=== PATIENT | female | born 1945 | race Caucasian/White ===

== ENCOUNTER → 2018-06-22 21:41 | Outpatient (CLI) | payer MEDICARE, OTHER, SELFPAY ==
[2018-06-17 15:56] VITALS: BMI 24.6
[2018-06-22 22:18] LABS: Absolute Lymphocyte Count 2.12 X10^3/ul (0.83-4.51); Absolute Neutrophil Count 5.4 X10^3/uL (2.0-7.7); Basophil# 0.04 X10^3/uL; Basophil% 0.5 % (0-1); Eosinophil# 0.26 X10^3/uL; Hematocrit 45.4 % (37-47); Hemoglobin 15.9 g/dl (12.0-15.0); Lymphocyte # 2.12 X10^3/ul (4.0); Lymphocyte % 24.7 % (19-41); Mean Corpuscular Hgb 30.6 pg (27.0-32.0); Mean Corpuscular Volume 87.5 fL (81-99); Mean Platelet Vol. 9.6 fl (6.2-12.0); Monocyte# 0.74 X10^3/uL; Monocyte% 8.6 % (0-10); Neutrophil # 5.41 X10^3/uL (2.7-7.7); Platelet Count 351 K/mm3 (150-450); RBC Distribution Width CV 13.1 % (11.6-14.6); Red Blood Count 5.19 M/mm3 (4.2-5.4); White Blood Count 8.6 K/mm3 (4.4-11.0)
[2018-06-22 22:27] LABS: POSITIVE COUNT NO; POSITIVE DIFFERENTIAL NO; POSITIVE MORPHOLOGY NO
[2018-06-22 22:48] LABS: AST(SGOT) 23 U/L (15-37); Alanine Aminotransfer ALT/SGPT 24 U/L (13-56); Albumin, Serum 3.9 g/dL (3.2-5.0); Alkaline Phosphatase 51 U/L (45-117); Anion Gap 7 (5-15); BUN 20 mg/dL (7-18); BUN/Creat Ratio 22.6 RATIO (10-20); Calcium,Total 9.3 mg/dL (8.5-10.1); Chloride 96 mmol/L (98-107); Cholesterol 204 mg/dL (200); Creatinine, Serum 0.88 mg/dL (0.55-1.02); EST Glomerular Filtration Rate 67 mL/min (>60); Est Glom Filt Rate - Afr Amer 81 mL/min (>60); Globulin 3.8 g/dL (2.2-4.2); Glucose 86 mg/dL (74-106); High Density Lipoprotein 48 mg/dL; Potassium 3.6 mmol/L (3.5-5.1); Protein, Total 7.7 g/dL (6.4-8.2); Sodium Level 133 mmol/L (136-145); Thyroid Stim Hormone (TSH) 2.28 uIU/mL (0.358-3.74); Triglycerides 226 mg/dL; Very Low Density Lipoprotein 45 mg/dL (5-40)
--- OUTSIDE RECORDS SUMMARY | 2018-08-09 00:33 | XMS RPT_ITS ---
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 Jayme, Active Js Montes INSULATION SUPERVISOR-C [facility] / E78.00(ICD-10) Repository 05/18/2018 Active Unspecified open SHELTON LIAO Active [facility] wound of S Other [facility] unspecified Repository finger without damage to nail, initial encounter / S61.209A(ICD-10) 05/18/2018 Active Laceration SHELTON LIAO Active [facility] without foreign S Other [facility] body of left Repository middle finger without damage to nail, initial encounter / S61.213A(ICD-10) 05/18/2018 Active Laceration SHELTON LIAO Active [facility] without foreign S Other [facility] body of left Repository little finger without damage to nail, initial encounter / S61.217A(ICD-10) 08/11/2017 Active Encounter for MAGALY NARAYAN Active [facility] screening (INSULATION SUPERVISOR) Other [facility] mammogram for Repository malignant neoplasm of breast / Z12.31(ICD-10) PROCEDURES PROCEDURES No Procedure Records FoundRESULTS RESULTS OFFICE VISIT Observed: 06/24/2018 Status: F Source: JS 2:32 PM [facility] REPOSITORY [facility] [address] [place] [address] OFFICE VISIT Date of Service: 06/22/18 MR#: [id number] Acct: [id number] Name: FANNY MARTINEZ Rep #: [id number] : 1945 Provider: YIMI Delacruz Age/Sex: 72/F Location: [facility] Status: Signed Intake Intake Visit Reasons: BW Allergies adhesive Allergy (Severe, Verified 03/27/18 14:29) hives itches nitrofurantoin [From Macrodantin] Allergy (Intermediate, Verified 03/27/18 14:28) hives augmentin Adverse Reaction (Severe, Uncoded 03/27/18 14:28) Upset Stomach Medications alprazolam 0.5 mg tablet 0.5 mg PO BID-TID PRN tab 03/27/18 [History Confirmed 03/27/18] aspirin 81 mg chewable tablet 81 mg PO DAILY 03/27/18 [History Confirmed 03/27/18] bimatoprost 0.01 % eye drops 1 drp OPHTHALMIC QPM 03/27/18 [History Confirmed 03/27/18] calcium cit 250 mg-mag 40 mg-D3 125 unit-zinc 3.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-erkia tablet 1 tab PO DAILY 03/27/18 [History Confirmed 03/27/18] estradiol 0.025 mg/24 hr semiweekly transdermal patch 1 patch TRANSDERMAL QWEEK 03/27/18 [History Confirmed 03/27/18] multivitamin,xa-ymut-ventkqfk tablet 1 tab PO DAILY 03/27/18 [History Confirmed 03/27/18] timolol 0.5 % eye drops 1 drp OPHTHALMIC BID 03/27/18 [History Confirmed 03/27/18] ibuprofen 800 mg tablet 800 mg PO TID PRN #60 tab 05/27/18 [Rx Confirmed 05/27/18] cephalexin 250 mg capsule 250 mg PO TID #15 cap 06/17/18 [Rx Confirmed 06/17/18] atenolol 100 mg-chlorthalidone 25 mg tablet 1 tab PO DAILY #90 tab 06/23/18 [Rx] levothyroxine 50 mcg tablet 50 mcg PO DAILY #90 tab 06/23/18 [Rx] PFSH Medical History Abnormal colonoscopy (Acute) Anxiety (Acute) C. difficile diarrhea (Acute) Glaucoma (Acute) H/O endoscopy (Acute) Menopausal symptom (Acute) Osteopenia (Acute) Hypertension (Chronic) Surgical History History of appendectomy (Acute) History of bladder suspension procedure (Acute) History of cholecystectomy (Acute) History of right shoulder replacement (Acute) S/P total abdominal hysterectomy and bilateral salpingo-oophorectomy (Acute) Family History Mother Colon cancer Other Heart disease Hypertension Pancreatic cancer Social History Smoking Status: Never smoker HPI HPI (General) HPI HPI: FANNY MARTINEZ, is a 72 F who presents to the office today for Assessment AND Plan Orders Orders: Coding Level of Care Code No Charge 06/24/18 1438 <Electronically signed by Jyoti FITZPATRICKC> Date Jyoti XIE CC: CBC W/DIFF, AUTOMATED Collected: 06/22/2018 Status: F Source: JS 3:35 PM [facility] REPOSITORY TYPE CODE TESTS RESULT OUT OF RANGE REFERENCE UNITS LAB L100.1000 4.4-11.0 K/mm3 Normal WBC 8.6 LAB L100.1200 4.2-5.4 M/mm3 Normal RBC 5.19 LAB L100.1300 12.0-15.0 g/dl High HGB 15.9 LAB L100.1400 37-47 % Normal HCT 45.4 LAB L100.1500 81-99 fL Normal MCV 87.5 LAB L100.1600 27.0-32.0 pg Normal MCH 30.6 LAB L100.1700 32-36 g/gl Normal MCHC 35.0 LAB L100.1810 11.6-14.6 % Normal RDW CV 13.1 LAB L100.1820 35.1-43.9 fl Normal RDW SD 42.0 LAB L100.1900 150-450 K/mm3 Normal PLT 351 LAB L100.2000 6.2-12.0 fl Normal MPV 9.6 LAB L100.2100 47-70 % Normal NEUT% 63.0 LAB L100.2200 19-41 % Normal LY% 24.7 LAB L100.2300 0-10 % Normal MONO% 8.6 LAB L100.2400 0-5 % Normal EO% 3.0 LAB L100.2500 0-1 % Normal BASO% 0.5 LAB L100.2550 0.0-0.9 % Normal IM GRAN % 0.200 Result Comment: IG% - Immature Granulocytes (promyelocytes, myelocytes and metamyelocytes) > 1% indicates that a LEFT SHIFT is Present. LAB L100.2620 2.0-7.7 X10 3/uL Normal Absolute Neut 5.4 LAB L100.2720 0.83-4.51 X10 3/ul Normal Absolute Lymph 2.12 Performed By: #### L100.0100, L500.4050, L500.4100, L501.9520 #### [facility] [address] [place], [place], [address] COMPREHENSIVE METABOLIC Collected: 06/22/2018 Status: F Source: JS [facility] ED 3:35 PM [facility] REPOSITORY TYPE CODE TESTS RESULT OUT OF RANGE REFERENCE UNITS LAB L501.0100 74-106 mg/dL Normal GLU 86 Result Comment: Please note revised GLUCOSE reference range effective 2017. LAB L501.1000 7-18 mg/dL High BUN 20 LAB L501.1100 0.55-1.02 mg/dL Normal CREAT,SERUM 0.88 Result Comment: The validity of the calculated GFR AND GFRAA in patients over 70 years has not been determined. Clinical correlation is essential. LAB L501.1110 >60 mL/min Normal EST GFR 67 Result Comment: Non- GFR Calc LAB L501.1115 >60 mL/min Normal EST GFR - AA 81 Result Comment: GFR Calc LAB L501.1300 10-20 RATIO High BUN/CRE 22.6 LAB L501.1500 6.4-8.2 g/dL T Normal PROT 7.7 LAB L501.1800 3.2-5.0 g/dL Normal ALB 3.9 LAB L501.1950 2.2-4.2 g/dL Normal GLOB 3.8 LAB L501.2000 0.9-2.4 RATIO Normal A/G 1.0 LAB L501.2200 8.5-10.1 mg/dL CA Normal 9.3 LAB L501.4100 15-37 U/L Normal AST 23 LAB L501.4305 45-117 U/L Normal ALK P 51 LAB L501.4405 13-56 U/L Normal ALT 24 LAB L501.4600 0.20-1.00 mg/dL T Normal BILI 0.70 LAB L501.5300 136-145 mmol/L Low NA 133 LAB L501.5600 3.5-5.1 mmol/L K Normal 3.6 LAB L501.5900 98-107 mmol/L Low CL 96 LAB L501.6100 21.0-32.0 mmol/L Normal CO2 30.0 LAB L501.6200 5-15 Normal GAP 7 Performed By: #### L100.0100, L500.4050, L500.4100, L501.9520 #### [facility] [address] [place], [place], [id number] LIPID PROFILE Collected: 06/22/2018 Status: F Source: JS 3:35 PM [facility] REPOSITORY TYPE CODE TESTS RESULT OUT OF RANGE REFERENCE UNITS LAB L501.4900 200 mg/dL High CHOL 204 Result Comment: <200 mg/dL Desirable 200-240 mg/dL Borderline >240 mg/dL High Risk LAB L501.5000 mg/dL High TRIG 226 Result Comment: The drugs N-Acetylcysteine and Metamizole may falsely depress this assay. Serum Triglycerides Reference Interval Normal <150 mg/dL Borderline high 150 - 199 mg/dL High 200 - 499 mg/dL Very High > or = 500 mg/dL LAB L501.6400 mg/dL Normal HDL 48 Result Comment: The drugs N-Acetylcysteine and Metamizole may falsely depress this assay. Reference Range HDL <40 mg/dL Low HDL Cholesterol HDL >or= 60 mg/dL High HDL Cholesterol LAB L501.6500 0-130 mg/dL Normal LDL 111 LAB L501.6600 5-40 mg/dL High VLDL 45 Performed By: #### L100.0100, L500.4050, L500.4100, L501.9520 #### [facility] [address] [place], [place], [id number] THYROID STIM HORMONE Collected: 06/22/2018 Status: F Source: JS (TSH) 3:35 PM [facility] REPOSITORY TYPE CODE TESTS RESULT OUT OF RANGE REFERENCE UNITS LAB L501.9520 0.358-3.74 uIU/mL Normal TSH 2.28 Performed By: #### L100.0100, L500.4050, L500.4100, L501.9520 #### [facility] [address] [place], [address] OFFICE VISIT Observed: 06/17/2018 Status: F Source: JS 3:59 PM [facility] REPOSITORY [facility] [address] [place] [address] OFFICE VISIT Date of Service: 06/17/18 MR#: [id number] Acct: [id number] Name: FANNY MARTINEZ Rep #: [id number] : 1945 Provider: YIMI Delacruz Age/Sex: 72/F Location: [facility] Status: Signed Intake Vital Signs06/17/18 Height 5 ft 3 in 06/17/18 Weight: 139 lb Intake Visit Reasons: finger lump Accompanied by: self Is patient in pain?: Yes Allergies adhesive Allergy (Severe, Verified 03/27/18 14:29) hives itches nitrofurantoin [From Macrodantin] Allergy (Intermediate, Verified 03/27/18 14:28) hives augmentin Adverse Reaction (Severe, Uncoded 03/27/18 14:28) Upset Stomach Medications alprazolam 0.5 mg tablet 0.5 mg PO BID-TID PRN tab 03/27/18 [History Confirmed 03/27/18] aspirin 81 mg chewable tablet 81 mg PO DAILY 03/27/18 [History Confirmed 03/27/18] atenolol 100 mg-chlorthalidone 25 mg tablet 1 tab PO DAILY 03/27/18 [History Confirmed 03/27/18] bimatoprost 0.01 % eye drops 1 drp OPHTHALMIC QPM 03/27/18 [History Confirmed 03/27/18] calcium cit 250 mg-mag 40 mg-D3 125 unit-zinc 3.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-erika tablet 1 tab PO DAILY 03/27/18 [History Confirmed 03/27/18] estradiol 0.025 mg/24 hr semiweekly transdermal patch 1 patch TRANSDERMAL QWEEK 03/27/18 [History Confirmed 03/27/18] levothyroxine 50 mcg tablet 50 mcg PO DAILY 03/27/18 [History Confirmed 03/27/18] multivitamin,tx-bilx-vwvxunuu tablet 1 tab PO DAILY 03/27/18 [History Confirmed 03/27/18] timolol 0.5 % eye drops 1 drp OPHTHALMIC BID 03/27/18 [History Confirmed 03/27/18] ibuprofen 800 mg tablet 800 mg PO TID PRN #60 tab 05/27/18 [Rx Confirmed 05/27/18] cephalexin 250 mg capsule 250 mg PO TID #15 cap 06/17/18 [Rx Confirmed 06/17/18] Is last menstrual period known: No Post menopausal: Yes Patient : No PFSH Medical History Abnormal colonoscopy (Acute) Anxiety (Acute) C. difficile diarrhea (Acute) Glaucoma (Acute) H/O endoscopy (Acute) Menopausal symptom (Acute) Osteopenia (Acute) Hypertension (Chronic) Surgical History History of appendectomy (Acute) History of bladder suspension procedure (Acute) History of cholecystectomy (Acute) History of right shoulder replacement (Acute) S/P total abdominal hysterectomy and bilateral salpingo-oophorectomy (Acute) Family History Mother Colon cancer Other Heart disease Hypertension Pancreatic cancer Social History Smoking Status: Never smoker HPI HPI (General) HPI HPI: FANNY MARTINEZ, is a 72 F who presents to the office today for L middle finger developed a painful bump near where her sutures were. the scab on the pad of the finger was still there also. she notice a like blister on the lat side of the finger near the finger tip ROS Skin Skin: Positive for skin swelling, skin pain and redness Exam Resp Effort AND Inspection: Yes normal respiratory effort Auscultation: Yes clear to auscultation bilaterally Cardio Palpitation: Yes normal PMI Rate: Yes regular rate Rhythm: Yes regular rhythm Skin General: no rashes or lesions noted (blister along the nail. finger appears red) Lesions: Yes no lesions Office Procedures Incision and Drainage Provider Documentation Provider Documentation: washed the finger with Hibiclens then using a 15 blade slit the finger tip at the site of the blister got blood and no pus or other d/c covered the finger with gauze and sock tolerated well Incision and Drainage 58261 of Skin Assessment AND Plan 1. Pain in finger of left hand M79.645 Patient Instructions WASh the finger in antibacterial soap keep covered and take the antibiotics for 5 days and follow up if not better Orders Orders: 2. Blister T14.8XXA Plan Detail Other Medications New: Coding Level of Care Code Off vis,est,level 3 Diagnoses Pain in finger of left hand M79.645 Blister T14.8XXA Additional Codes Incision and Drainage - I AND D: 95288 of Skin (98986) 06/17/18 1559 <Electronically signed by Jyoti XIE> Date Jyoti XIE CC: OFFICE VISIT Observed: 05/27/2018 Status: F Source: JS 5:38 PM [facility] REPOSITORY [facility] [address] [place] [address] OFFICE VISIT Date of Service: 05/27/18 MR#: [id number] Acct: [id number] Name: FANNY MARTINEZ Rep #: [id number] : 1945 Provider: YIMI Delacruz Age/Sex: 72/F Location: [facility] Status: Signed Intake Vital Signs05/27/18 Height 5 ft 3 in 05/27/18 Weight: 138 lb Intake Visit Reasons: F/U STITCHES IN FINGERS 11-6 Allergies adhesive Allergy (Severe, Verified 03/27/18 14:29) hives itches nitrofurantoin [From Macrodantin] Allergy (Intermediate, Verified 03/27/18 14:28) hives augmentin Adverse Reaction (Severe, Uncoded 03/27/18 14:28) Upset Stomach Medications alprazolam 0.5 mg tablet 0.5 mg PO BID-TID PRN tab 03/27/18 [History Confirmed 03/27/18] aspirin 81 mg chewable tablet 81 mg PO DAILY 03/27/18 [History Confirmed 03/27/18] atenolol 100 mg-chlorthalidone 25 mg tablet 1 tab PO DAILY 03/27/18 [History Confirmed 03/27/18] bimatoprost 0.01 % eye drops 1 drp OPHTHALMIC QPM 03/27/18 [History Confirmed 03/27/18] calcium cit 250 mg-mag 40 mg-D3 125 unit-zinc 3.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-erika tablet 1 tab PO DAILY 03/27/18 [History Confirmed 03/27/18] estradiol 0.025 mg/24 hr semiweekly transdermal patch 1 patch TRANSDERMAL QWEEK 03/27/18 [History Confirmed 03/27/18] levothyroxine 50 mcg tablet 50 mcg PO DAILY 03/27/18 [History Confirmed 03/27/18] multivitamin,pe-pbkd-gopfqvcp tablet 1 tab PO DAILY 03/27/18 [History Confirmed 03/27/18] timolol 0.5 % eye drops 1 drp OPHTHALMIC BID 03/27/18 [History Confirmed 03/27/18] ibuprofen 800 mg tablet 800 mg PO TID PRN #60 tab 05/27/18 [Rx Confirmed 05/27/18] PFSH Medical History Abnormal colonoscopy (Acute) Anxiety (Acute) C. difficile diarrhea (Acute) Glaucoma (Acute) H/O endoscopy (Acute) Menopausal symptom (Acute) Osteopenia (Acute) Hypertension (Chronic) Surgical History History of appendectomy (Acute) History of bladder suspension procedure (Acute) History of cholecystectomy (Acute) History of right shoulder replacement (Acute) S/P total abdominal hysterectomy and bilateral salpingo-oophorectomy (Acute) Family History Mother Colon cancer Other Heart disease Hypertension Pancreatic cancer Social History Smoking Status: Never smoker HPI HPI (General) HPI HPI: FANNY MARTINEZ, is a 72 F who presents to the office today for suture removal of the finger. Was seen in the ED about 10 days ago for smashing her fingers in the window at the voting area in [facility]. Received [address] and 4 th finger tips no sign of infection but some dehiscence occurred ROS Skin Skin: Positive for wounds (10 sutures) Exam Const Constitutional: Yes cooperative HENMT Face: Yes laceration (10 sutures removed) Resp Effort AND Inspection: Yes normal respiratory effort Cardio Palpitation: Yes normal PMI Rate: Yes regular rate Rhythm: Yes regular rhythm Skin Trauma: Yes laceration (10 sutures removed) Office Procedures Suture/Staple Removal Suture/Staple Procedure performed by: Jyoti Delacruz Staple/Suture Removal: rinsed the fingers with h202 to remove old blood removed 10 sutures but the 4 th finger open with not well approximated skin applied calcium alginate and covered with gauze and Angela to both fingers tolerated well Assessment AND Plan Problems 1. Pain in finger of left hand M79.645 2. Laceration of finger without complication, initial encounter S66.268F Patient Instructions change dressing daily Shower as usual and cover the open area with the calcium alginate moisten the cover with moist gauze and dry gauze then tape till scabbed follow up for any more issues removed 10 sutures Orders Orders: Medications New: Coding Level of Care Code Off vis,est,level 3 Diagnoses Pain in finger of left hand M79.645 Laceration of finger without complication, initial encounter S61.219A Encounter type: initial encounter 05/27/18 1738 <Electronically signed by Jyoti XIE> Date Jyoti XIE CC: ED NOTE Observed: 05/18/2018 Status: COMPLETED Source: [place] 10:04 AM [facility] REPOSITORY HNO ID: [id number] Author: Bianca (Rn) GABE Samuel Service: Nursing Author Type: Registered Nurse Type: ED Notes Filed: 05/18/2018 10:06 AM Note Text: Discharge instructions d/w pt and spouse at bedside. Stated understanding with no further questions for this nurse. Encouraged f/u with PCP and referring doctors given. Stated understanding. Prescription(S) were given X1. Pt medicated prior to leaving ED for pain control, pt states that the lidocaine is wearing off. Bacitracin applied to suture sites, covered with a telfa then secured in place with conformed gauze. Pt tolerated well and Pt instructed on home use via teachback method. XR HAND 3V PA/LAT/OBL Observed: 05/18/2018 Status: F Source: [facility] 8:10 AM [facility] REPOSITORY * * *Final Report* * * DATE OF EXAM: May 18 2018 8:10AM MDX [id number] - XR HAND 3V PA/LAT/OBL LT / PROCEDURE REASON: Fracture, hand * * * * Physician Interpretation * * * * PROCEDURE: Left hand INDICATION: Fracture, hand .window closed on pt's hand per pt ,all fingers are in pain- TECHNIQUE: XR HAND 3V PA/LAT/OBL LT COMPARISON: None FINDINGS: No fractures or dislocations. 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 No focal soft tissue swelling. No soft tissue foreign body. 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 No acute fracture. Coroner/Medical Examiner: MELVIN Transcribe Date/Time: May 18 2018 8:16A Dictated by : YANELIS MCDANIEL MD This examination was interpreted and the report reviewed and electronically signed by: YANELIS MCDANIEL MD on May 18 2018 8:17AM EST [id number] ED NOTE Observed: 05/18/2018 Status: COMPLETED Source: [place] 7:25 AM [facility] REPOSITORY HNO ID: [id number] Author: Chris (Medic) Juliana Petersen Service: (none) Author Type: Overcoil Stepper and Assistant Pressman Type: ED Notes Filed: 05/18/2018 7:26 AM Note Text: Pt came to ER today after a window fell onto left hand/fingers, pt has multi lacs to third and fifth digits ED PROV NOTE Observed: 05/18/2018 Status: COMPLETED Source: [place] 7:22 AM [facility] REPOSITORY HNO ID: [id number] Author: Shelton Liao MD Service: (none) Author Type: Physician Type: ED Provider Notes Filed: 05/18/2018 9:26 AM Note Text: ED Provider Note Patient Name: Fanny Martinez SERVICE DATE: 05/18/18 History Patient presents with: Finger Injury: multi finger 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 She came here immediately. He she has worsening pain with movement and a lot of bleeding. She denies numbness or weakness, and her last tetanus shot was more than 5 years ago. She is able to move her fingers just fine. PAST MEDICAL HISTORY Diagnosis Date - Hypertension PAST SURGICAL HISTORY Procedure Laterality Date - APPENDECTOMY HX - CHOLECYSTECTOMY HX - HYSTERECTOMY HX - ORTHOPEDICS SURGERY HX No family history on file. Social History Social History Main Topics - Smoking status: Never Smoker - Smokeless tobacco: Not on file - Alcohol use No - Drug use: Unknown - Sexual activity: Not on file ALLERGIES Allergen Reactions - Adhesive Tape (Jesi* Rash - Amoxicillin GI Upset - Augmentin [Amoxicil* GI Upset - Macrodantin [Nitrof* Rash - Skelaxin [Metaxalon* GI Upset Review of Systems Constitutional: Negative for chills and fever. HENT: Negative for ear pain, rhinorrhea and sore throat. Respiratory: Negative for cough and shortness of breath. Cardiovascular: Negative for chest pain and leg swelling. Gastrointestinal: Negative for abdominal pain, diarrhea, nausea and vomiting. Genitourinary: Negative for dysuria, flank pain, frequency and hematuria. Musculoskeletal: Positive for arthralgias and myalgias. Negative for back pain. Skin: Positive for wound. Negative for rash. Neurological: Negative for speech difficulty, weakness, light-headedness, numbness and headaches. Psychiatric/Behavioral: Negative for hallucinations and suicidal ideas. Physical Exam There were no vitals taken for this visit. Physical Exam Constitutional: She is oriented to person, place, and time. She appears well-developed and well-nourished. No distress. HENT: Head: Normocephalic and atraumatic. Mouth/Throat: No oropharyngeal exudate. Eyes: Pupils are equal, round, and reactive to light. Neck: Normal range of motion. Neck supple. No tracheal deviation present. Cardiovascular: Normal rate and intact distal pulses. Pulmonary/Chest: Effort normal. No respiratory distress. Abdominal: Soft. She exhibits no distension. Musculoskeletal: Normal range of motion. She exhibits no edema. Intact flexion at PIP's and DIP's throughout, intact extension throughout, intact sensation throughout; L 3rd digit distal phalanx volar surface 1 cm laceration and more distal 0.5 cm avulsion, L 5th digit distal phalanx volar surface 0.8 cm laceration, superficial Neurological: She is alert and oriented to person, place, and time. No cranial nerve deficit. She exhibits normal muscle tone. Skin: Skin is warm and dry. No erythema. As above Psychiatric: She has a normal mood and affect. Her behavior is normal. Judgment and thought content normal. Nursing note and vitals reviewed. Diagnostic Testing ED Labs Ordered and Reviewed - No data to display LAC REPAIR Date/Time: 05/18/2018 9:23 AM Performed by: SHELTON LIAO Authorized by: SHELTON LIAO Consent: Consent obtained: Verbal Consent given by: Patient Risks discussed: Infection and pain [place] protocol: Procedure explained and questions answered to patient or proxy's satisfaction: yes Relevant documents present and verified: yes Test results available and properly labeled: yes Imaging studies available: yes Required blood products, implants, devices, and special equipment available: yes Patient identity confirmed: Verbally with patient, hospital-assigned identification number, arm band and provided demographic data Anesthesia (see MAR for exact dosages): Anesthesia method: Nerve block Block location: Digital block x 2 Block needle gauge: 27 G Block anesthetic: Lidocaine 1% w/o epi Block technique: Digital Block injection procedure: Anatomic landmarks identified, introduced needle, negative aspiration for blood, anatomic landmarks palpated and incremental injection Block outcome: Anesthesia achieved Laceration details: Location: Finger Finger location: L long finger (and L little finger) Wound length (cm): 3 cm total, 1 cm each wound. Repair type: Repair type: Simple Pre-procedure details: Preparation: Patient was prepped and draped in usual sterile fashion and imaging obtained to evaluate for foreign bodies Exploration: Hemostasis achieved with: Direct pressure Wound exploration: wound explored through full range of motion and entire depth of wound probed and visualized Wound extent: no nerve damage noted and no tendon damage noted Treatment: Area cleansed with: Saline Amount of cleaning: Standard Irrigation solution: Sterile water Irrigation method: Tap Skin repair: Repair method: Sutures Suture size: 5-0 Suture material: Nylon Suture technique: Simple interrupted Number of sutures: 3, 3, and 4. Approximation: Approximation: Close Vermilion border: well-aligned Post-procedure details: Dressing: Antibiotic ointment Patient tolerance of procedure: Tolerated well, no immediate complications ED Course / Clinical Impression Clinical Impressions as of May 18 923 Laceration of left middle finger without foreign body without damage to nail, initial encounter Laceration of left little finger without foreign body without damage to nail, initial encounter Fingertip avulsion, initial encounter MDM / Disposition / Plan Course: Vital signs were reviewed. Triage records were reviewed. Medical records were reviewed. Nursing notes were reviewed and incorporated. The following medications were administered: Tetanus, bacitracin ointment Radiographs were reviewed as below. Medical Decision Making: Differential diagnosis: Lacerations of the left third and fifth fingers to the distal phalanx volar surfaces, also an avulsion of the left third digit over the distal phalanx, possible open fracture, tetanus out of date, closed fracture elsewhere, no apparent tendon or nerve injury. Assessment and plan: Ms. Martinez is a pleasant 72-year-old female presenting today with left third and fifth digit injuries. Will reassess after plain films and tetanus update and likely suture her wounds. Nothing broken, sutured, will do topical abx, close f/u for removal/recheck, returning if worse. The attending who evaluated and managed this patient was Shelton Liao . Plan: The patient was discharged home with verbal and written instructions. They were instructed to return as needed for persistent or worsening symptoms or any new concerns. Consent: A procedure or transfusion was performed - Yes verbal for procedure Shelton Liao MD SIGNATURE: MD Shelton Estevez MD 05/18/18 0926 OFFICE VISIT Observed: 03/27/2018 Status: F Source: [place] 2:39 PM [facility] REPOSITORY After Hours [place] [address] [place] [address] OFFICE VISIT Date of Service: 03/27/18 MR#: [id number] Acct: [id number] Name: FANNY MARTINEZ Rep #: [id number] : 1945 Provider: YIMI Delacruz Age/Sex: 72/F Location: [facility] Status: Signed Intake Vital Signs03/27/18 Height 5 ft 3 in 03/27/18 Weight: 137 lb Intake Visit Reasons: DIZZY Accompanied by: Self Allergies adhesive Allergy (Severe, Verified 03/27/18 14:29) hives itches nitrofurantoin [From Macrodantin] Allergy (Intermediate, Verified 03/27/18 14:28) hives augmentin Adverse Reaction (Severe, Uncoded 03/27/18 14:28) Upset Stomach Medications alprazolam 0.5 mg tablet 0.5 mg PO BID-TID PRN tab 03/27/18 [History Confirmed 03/27/18] aspirin 81 mg chewable tablet 81 mg PO DAILY 03/27/18 [History Confirmed 03/27/18] atenolol 100 mg-chlorthalidone 25 mg tablet 1 tab PO DAILY 03/27/18 [History Confirmed 03/27/18] bimatoprost 0.01 % eye drops 1 drp OPHTHALMIC QPM 03/27/18 [History Confirmed 03/27/18] calcium cit 250 mg-mag 40 mg-D3 125 unit-zinc 3.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-erika tablet 1 tab PO DAILY 03/27/18 [History Confirmed 03/27/18] cefuroxime axetil 250 mg tablet 250 mg PO Q12H 7 Days #14 tab 03/27/18 [Rx Confirmed 03/27/18] estradiol 0.025 mg/24 hr semiweekly transdermal patch 1 patch TRANSDERMAL QWEEK 03/27/18 [History Confirmed 03/27/18] levothyroxine 50 mcg tablet 50 mcg PO DAILY 03/27/18 [History Confirmed 03/27/18] multivitamin,dk-khni-pxhgpodc tablet 1 tab PO DAILY 03/27/18 [History Confirmed 03/27/18] timolol 0.5 % eye drops 1 drp OPHTHALMIC BID 03/27/18 [History Confirmed 03/27/18] Is last menstrual period known: No Post menopausal: Yes Patient : No PFSH Medical History Abnormal colonoscopy (Acute) Anxiety (Acute) C. difficile diarrhea (Acute) Glaucoma (Acute) H/O endoscopy (Acute) Menopausal symptom (Acute) Osteopenia (Acute) Hypertension (Chronic) Surgical History History of appendectomy (Acute) History of bladder suspension procedure (Acute) History of cholecystectomy (Acute) History of right shoulder replacement (Acute) S/P total abdominal hysterectomy and bilateral salpingo-oophorectomy (Acute) Family History Mother Colon cancer Other Heart disease Hypertension Pancreatic cancer Social History Smoking Status: Never smoker HPI HPI (General) HPI HPI: FANNY MARTINEZ, is a 72 F who presents to the office today for dizziness. Last Thurs called and asked what she could take .Has been using the Dramamine since then and it helps but now thinks its a sinus infection Was unable to walk upright but now doing better but woke up today dizzy again ROS Const Constitutional: Positive for fatigue and other (dizzy) ENT ENT: Positive for sinus pain, sinus pressure, dizziness/vertigo and ear pain Gastro GI: Yes other (dizzy) Endo Endo: Yes fatigue Exam Const Constitutional: Yes cooperative, Yes healthy appearing Orientation: Yes alert and awake HENMT Head: Yes normocephalic Ear: Yes hearing grossly normal bilaterally TM-Right: normal TM-Left: red Pinna-Right: within normal limits Pinna-Left: within normal limits Face: Yes normal facial exam, Yes sinus tenderness Nose: Yes external nose normal Mouth: Yes oral mucosae normal Teeth and Gingiva: Yes dentition normal Throat: Yes posterior oropharynx normal Neck Neck: normal visual inspection Thyroid: thyroid normal Eyes General: Yes appearance normal, both eyes and all related structures Chest Chest palpation AND inspection: Yes normal inspection of the chest Resp Effort AND Inspection: Yes normal respiratory effort Auscultation: Yes clear to auscultation bilaterally Cardio Palpitation: Yes normal PMI Rate: Yes regular rate Rhythm: Yes regular rhythm GI Inspection: Yes normal to inspection Auscultation: Yes normal bowel sounds Musc Cervical Spine: Yes cervical ROM normal Thoracic/Lumbar Spine: Yes thoracic and lumbar spine normal to inspection Skin General: no rashes or lesions noted Lesions: Yes no lesions Extrem General: Yes normal to inspection Neuro General: Yes alert Gait: Yes normal gait Motor: muscle tone normal throughout Psych Appearance: Positive grossly normal Mood: Positive congruent mood Affect: Positive normal affect Assessment AND Plan Problems 1. Vertigo R42 2. Acute maxillary sinusitis, recurrence not specified J01.00 3. Acute serous otitis media of left ear, recurrence not specified H65.02 Patient Instructions Take the antibiotics for 7 days then if need more get the refill watch the bowels for the diarrhea and if starts stop the antibiotics immediately Try Flonase NS 2 squirts each nostril each night before sleep try Pseudafed 30 mg (short acting ) 2 2 x a day for 5-7 days Medications New: Coding Level of Care Code Off vis,est,level 3 Diagnoses Vertigo R42 Acute maxillary sinusitis, recurrence not specified J01.00 Chronicity: acute Recurrence: not specified as recurrent Acute serous otitis media of left ear, recurrence not specified H65.02 Chronicity: acute Otitis media type: serous Recurrence: not specified as recurrent 03/27/18 1439 <Electronically signed by Jyoti XIE> Date Jyoti XIE CC: CNCO Observed: 08/11/2017 Status: COMPLETED Source: [place] 12:39 PM CLINIC OTHER CAMPUS REPOSITORY HNO ID: [id number] Author: Mammography Coordinator Service: (none) Author Type: Physician Type: Letter Filed: 08/12/2017 11:31 PM Note Text: August 11, 2017 PID: [id number] Fanny Martinez [address] [place] [id number] Dear Ms. Martinez, We are pleased to inform you that the results of your recent breast imaging exam on 08/11/2017 are normal. Early detection of cancer is very important. We also understand recommendations regarding breast cancer screening are controversial. Please discuss with your primary care provider which strategy is best for you and whether a mammogram is right for you. Your imaging studies and report will be kept on file at [facility] as part of your permanent medical record and are available for your continuing care. Thank you for allowing us to help in meeting your health care needs. Sincerely, Dr. Guaman Interpreting Radiologist [facility]. (Normal over 40) [facility] Observed: 08/11/2017 Status: F Source: [place] 11:08 AM [facility] OTHER CAMPUS REPOSITORY * * *Final Report* * * DATE OF EXAM: Aug 11 2017 11:08AM RAEGAN [id number] - [facility] SCRE[facility] / PROCEDURE REASON: z12.31 screening * * * * Physician Interpretation * * * * #[id number] - [facility] SCREEN[facility] BILATERAL DIGITAL SCREENING MAMMOGRAM WITH CAD: 08/11/2017 HISTORY: Z12.31 Screening /Screening Mammogram - patient reports NO symptoms. RESULT: TECHNIQUE: The study was acquired using full field digital technology and interpreted from soft copy. Current study was also evaluated with a Computer Aided Detection (CAD). Comparison is made to exams dated: 07/17/2016 mammogram, 07/16/2016 mammogram, 07/11/2015 mammogram, and 07/10/2014 mammogram - [facility]. There are scattered fibroglandular elements in both breasts. No significant masses, calcifications, or other findings are seen in either breast. There has been no significant interval change. IMPRESSION: NEGATIVE There is no mammographic evidence of malignancy.A 1 year screening mammogram is recommended. Suzan ortiz/nahun:08/11/2017 12:39:57 Auricular Therapist: Porsha MARSH)(Christo), [facility] letter sent: Normal over 40 Mammogram BI-RADS: 1 Negative Coroner/Medical Examiner: Nahun Transcribe Date/Time: Aug 11 2017 11:03A Dictated by : SUZAN GUAMAN MD This examination was interpreted and the report reviewed and electronically signed by: SUZAN GUAMAN MD on Aug 11 2017 12:39PM EST [id number] ALLERGIES ALLERGIES DATE TYPE / CODE NAME / CODE REACTION SEVERITY SOURCE Drug nitrofurantoin/F0060 Hives [place] 8 Allergy/099451318( [address](RXNORM) [facility] SNOMED CT) Hospital Repository Drug adhesive/[id number]( hives itches [place] 8 Allergy/540101456( RXNORM) [facility] SNOMED CT) Hospital Repository Miscellaneous augmentin Upset [place] 8 Allergy/835761463( [facility] Hospital Repository DRUG NITROFURANTOIN RASH [place] 4 INGREDI/941258450( MACROCRYSTALLINE Clinic Other SNOMED CT) [place] [facility] DRUG/962064616(SNO AMOXICILLIN-POT GI UPSET [place] [address]) CLAVULANATE Clinic Other [place] [facility] DRUG AMOXICILLIN GI UPSET [place] 1 INGREDI/304054070( Clinic Other SNOMED CT) [place] [facility] DRUG METAXALONE GI UPSET [place] INGREDI/149778856( Clinic Other SNOMED CT) [place] [facility] Chemical/203810574 ADHESIVE TAPE RASH [place] 0 (SNOMED CT) (ROSINS) Clinic Other [place] [facility] ENCOUNTERS ENCOUNTERS ADMIT/DISCHARGE ACCOUNT ADMITTING ENCOUNTER LOCATION SOURCE NUMBER CLASS 06/22/2018 [id number] Ambulatory [place] [facility] [place] ing:LABSPEC Repository 05/18/2018/05/18/20 [id number] Emergency [address] Other [place] Repository 08/11/2017 [id number] Ambulatory [facility] Other [place] Repository PAYERS PAYERS ENCOUNTER GUARANTOR PAYER SUBSCRIBER SOURCE 06/22/2018 FANNY A Primary FANNY [place] J[place] [address] Insurance:MEDICARE [place]ENHAMDOB: [place] PART A [facility] [id number] Hospital [id number]: (330) Number: Repository [phone] () [id number] Date:2018-06-22 06/22/2018 Secondary FANNY A Js Insurance:Carrie GOMESB: [facility] Number: [id number] Hospital [id number] Repository Date:6022-28-20[address] [address]NO: 06/22/2018 Tertiary NOT GIVENUNK [place] Insurance:SELF PAY [facility] Effective Repository Date:2018-06-22
[2018-08-17 01:35] LABS: Vitamin D,25 Hydroxy 27.5 ng/mL (29.95-100.01)
== END ==
PROVIDERS: Referring Provider Nurse Practitioner; Visit Provider Nurse Practitioner
DX: E78.00 Pure hypercholesterolemia, unspecified (principal)
CPT/HCPCS: 80053; 80061; 82306; 84443; 85025

== ENCOUNTER → 2018-08-16 15:55 | Outpatient (CLI) | payer MEDICARE, SELFPAY ==
[2018-08-16 15:41] VITALS: BMI 26.4
== END ==
PROVIDERS: Referring Provider Nurse Practitioner; Visit Provider Nurse Practitioner
DX: M81.0 Age-related osteoporosis without current pathological fracture (principal)

== ENCOUNTER → 2018-11-22 22:40 | Outpatient (CLI) | payer MEDICARE, SELFPAY ==
[2018-08-16 15:41] VITALS: BMI 26.4
== END ==
PROVIDERS: Referring Provider Nurse Practitioner; Visit Provider Nurse Practitioner
DX: E55.9 Vitamin D deficiency, unspecified (principal)
CPT/HCPCS: 82306

== ENCOUNTER → 2018-12-09 23:43 | Outpatient (CLI) | payer MEDICARE, SELFPAY ==
[2018-12-09 15:31] VITALS: BMI 24.0
[2018-12-10 00:07] LABS: Absolute Lymphocyte Count 2.16 X10^3/ul (0.83-4.51); Absolute Neutrophil Count 6.4 X10^3/uL (2.0-7.7); Basophil# 0.04 X10^3/uL; Basophil% 0.4 % (0-1); Eosinophil# 0.36 X10^3/uL; Eosinophils% 3.7 % (0-5); Hemoglobin 15.6 g/dl (12.0-15.0); Lymphocyte # 2.16 X10^3/ul (4.0); Lymphocyte % 22.2 % (19-41); Mean Corp Hgb Conc 34.7 g/gl (32-36); Mean Corpuscular Hgb 29.4 pg (27.0-32.0); Mean Corpuscular Volume 84.9 fL (81-99); Mean Platelet Vol. 9.4 fl (6.2-12.0); Monocyte% 7.2 % (0-10); Neutrophil # 6.43 X10^3/uL (2.7-7.7); Neutrophil % 66.3 % (47-70); POSITIVE COUNT NO; POSITIVE DIFFERENTIAL NO; POSITIVE MORPHOLOGY NO; Platelet Count 359 K/mm3 (150-450); RBC Distribution Width CV 12.8 % (11.6-14.6); RBC Distribution Width SD 39.8 fl (35.1-43.9); White Blood Count 9.7 K/mm3 (4.4-11.0)
[2018-12-10 00:26] LABS: ALB/GLOB Ratio 1.1 RATIO (0.9-2.4); AST(SGOT) 22 U/L (15-37); Alanine Aminotransfer ALT/SGPT 22 U/L (13-56); Albumin, Serum 3.8 g/dL (3.2-5.0); Alkaline Phosphatase 53 U/L (45-117); Anion Gap 7 (5-15); BUN 23 mg/dL (7-18); BUN/Creat Ratio 28.4 RATIO (10-20); Calcium,Total 9.1 mg/dL (8.5-10.1); Chloride 98 mmol/L (98-107); Creatinine, Serum 0.81 mg/dL (0.55-1.02); EST Glomerular Filtration Rate 74 mL/min (>60); Est Glom Filt Rate - Afr Amer 89 mL/min (>60); Globulin 3.6 g/dL (2.2-4.2); Glucose 90 mg/dL (74-106); Magnesium 2.2 mg/dL (1.6-2.6); Potassium 3.9 mmol/L (3.5-5.1); Protein, Total 7.4 g/dL (6.4-8.2); Sodium Level 132 mmol/L (136-145)
== END ==
PROVIDERS: Visit Provider Nurse Practitioner
DX: I10 Essential (primary) hypertension (principal); R42 Dizziness and giddiness
CPT/HCPCS: 80053; 83735; 85025

== ENCOUNTER → 2018-12-30 | Outpatient (CLI) | payer MEDICARE, SELFPAY ==
[2018-12-30 15:27] VITALS: BMI 26.3
[2018-12-30 21:53] LABS: Anion Gap 4 (5-15); BUN 19 mg/dL (7-18); Calcium,Total 9.6 mg/dL (8.5-10.1); Chloride 103 mmol/L (98-107); EST Glomerular Filtration Rate 65 mL/min (>60); Est Glom Filt Rate - Afr Amer 79 mL/min (>60); Glucose 88 mg/dL (74-106); Sodium Level 135 mmol/L (136-145); Thyroid Stim Hormone (TSH) 2.57 uIU/mL (0.358-3.74)
== END | disposition home or self-care (01) ==
PROVIDERS: Referring Provider Nurse Practitioner; Visit Provider Nurse Practitioner
DX: I10 Essential (primary) hypertension (principal); E03.9 Hypothyroidism, unspecified
CPT/HCPCS: 80048; 84443

== ENCOUNTER → 2019-07-15 21:08 | Outpatient (CLI) | payer MEDICARE, OTHER, SELFPAY ==
[2019-07-15 17:42] VITALS: BMI 25.6
[2019-07-15 21:37] LABS: Absolute Lymphocyte Count 2.22 X10^3/uL (0.83-4.51); Absolute Neutrophil Count 6.2 X10^3/uL (2.0-7.7); Basophil# 0.05 X10^3/uL; Basophil% 0.5 % (0-1); Eosinophil# 0.17 X10^3/uL; Eosinophils% 1.8 % (0-5); Hemoglobin 15.3 g/dL (12.0-15.0); Lymphocyte # 2.22 X10^3/ul (4.0); Lymphocyte % 23.8 % (19-41); Mean Corpuscular Hgb 30.1 pg (27.0-32.0); Mean Corpuscular Volume 88.4 fL (81-99); Mean Platelet Vol. 9.1 fl (6.2-12.0); Monocyte# 0.68 X10^3/uL; Monocyte% 7.3 % (0-10); NRBC Flagged by Analyzer 0 % (0-5); Neutrophil # 6.17 X10^3/uL (2.7-7.7); Neutrophil % 66.3 % (47-70); Platelet Count 367 K/mm3 (150-450); RBC Distribution Width CV 12.8 % (11.6-14.6); RBC Distribution Width SD 41.6 fl (35.1-43.9); Red Blood Count 5.09 M/mm3 (4.2-5.4); White Blood Count 9.3 K/mm3 (4.4-11.0)
[2019-07-15 21:58] LABS: ALB/GLOB Ratio 1.1 RATIO (0.9-2.4); AST(SGOT) 22 U/L (15-37); Alanine Aminotransfer ALT/SGPT 27 U/L (13-56); Albumin, Serum 3.9 g/dL (3.2-5.0); Alkaline Phosphatase 46 U/L (45-117); Anion Gap 4 (5-15); BUN 22 mg/dL (7-18); BUN/Creat Ratio 22.3 RATIO (10-20); Calcium,Total 9.2 mg/dL (8.5-10.1); Chloride 100 mmol/L (98-107); Cholesterol 232 mg/dL (200); Creatinine, Serum 0.98 mg/dL (0.55-1.02); EST Glomerular Filtration Rate 59 mL/min (>60); Est Glom Filt Rate - Afr Amer 71 mL/min (>60); Globulin 3.7 g/dL (2.2-4.2); Glucose 87 mg/dL (74-106); High Density Lipoprotein 57 mg/dL; Potassium 3.9 mmol/L (3.5-5.1); Protein, Total 7.6 g/dL (6.4-8.2); Sodium Level 133 mmol/L (136-145); Thyroid Stim Hormone (TSH) 3.54 uIU/mL (0.358-3.74); Triglycerides 189 mg/dL; Very Low Density Lipoprotein 38 mg/dL (5-40)
== END ==
PROVIDERS: Referring Provider Nurse Practitioner; Visit Provider Nurse Practitioner
DX: I10 Essential (primary) hypertension (principal); E03.9 Hypothyroidism, unspecified
CPT/HCPCS: 80053; 80061; 84443; 85025

== ENCOUNTER → 2019-09-12 | Outpatient (CLI) | payer MEDICARE, OTHER, SELFPAY ==
[2019-09-12 15:01] VITALS: BMI 25.6
[2019-09-12 21:29] LABS: Thyroid Stim Hormone (TSH) 0.13 uIU/mL (0.358-3.74)
== END | disposition home or self-care (01) ==
PROVIDERS: Referring Provider Nurse Practitioner; Visit Provider Nurse Practitioner
DX: E03.9 Hypothyroidism, unspecified (principal)
CPT/HCPCS: 84443

== ENCOUNTER → 2020-07-24 | Outpatient (CLI) | payer MEDICARE, OTHER, SELFPAY ==
[2020-07-24 16:28] VITALS: BMI 25.2
[2020-07-24 22:09] LABS: Absolute Lymphocyte Count 2.26 X10^3/uL (0.83-4.51); Absolute Neutrophil Count 6.7 X10^3/uL (2.0-7.7); Basophil# 0.07 X10^3/uL; Basophil% 0.7 % (0-1); Eosinophil# 0.15 X10^3/uL; Eosinophils% 1.5 % (0-5); Hematocrit 47.7 % (37-47); Lymphocyte # 2.26 X10^3/ul (4.0); Mean Corp Hgb Conc 33.5 g/dL (32-36); Mean Corpuscular Hgb 29.9 pg (27.0-32.0); Mean Corpuscular Volume 89.2 fL (81-99); Mean Platelet Vol. 8.9 fl (6.2-12.0); Monocyte# 0.66 X10^3/uL; Monocyte% 6.7 % (0-10); NRBC Flagged by Analyzer 0 % (0-5); Neutrophil # 6.66 X10^3/uL (2.7-7.7); Neutrophil % 67.8 % (47-70); Platelet Count 360 K/mm3 (150-450); RBC Distribution Width CV 13.1 % (11.6-14.6); RBC Distribution Width SD 42.8 fl (35.1-43.9); Red Blood Count 5.35 M/mm3 (4.2-5.4); White Blood Count 9.8 K/mm3 (4.4-11.0)
[2020-07-24 22:28] LABS: ALB/GLOB Ratio 1.1 RATIO (0.9-2.4); AST(SGOT) 22 U/L (15-37); Alanine Aminotransfer ALT/SGPT 24 U/L (13-56); Alkaline Phosphatase 50 U/L (45-117); Anion Gap 8 (5-15); BUN 15 mg/dL (7-18); BUN/Creat Ratio 19.4 RATIO (10-20); Chloride 97 mmol/L (98-107); Creatinine, Serum 0.77 mg/dL (0.55-1.02); EST Glomerular Filtration Rate 78 mL/min (>60); Est Glom Filt Rate - Afr Amer 94 mL/min (>60); Globulin 3.6 g/dL (2.2-4.2); Glucose 95 mg/dL (74-106); Potassium 3.8 mmol/L (3.5-5.1); Protein, Total 7.6 g/dL (6.4-8.2); Sodium Level 131 mmol/L (136-145)
== END | disposition home or self-care (01) ==
PROVIDERS: Referring Provider Nurse Practitioner; Visit Provider Nurse Practitioner
DX: I10 Essential (primary) hypertension (principal); E03.9 Hypothyroidism, unspecified
CPT/HCPCS: 80053; 84443; 85025

== ENCOUNTER → 2021-07-01 | Outpatient (CLI) | payer MEDICARE, OTHER, SELFPAY ==
[2021-07-01 22:23] LABS: Absolute Lymphocyte Count 1.81 X10^3/uL (0.83-4.51); Absolute Neutrophil Count 8.2 X10^3/uL (2.0-7.7); Basophil# 0.07 X10^3/uL; Basophil% 0.6 % (0-1); Eosinophil# 0.15 X10^3/uL; Eosinophils% 1.4 % (0-5); Hematocrit 45.1 % (37-47); Hemoglobin 15.7 g/dL (12.0-15.0); Lymphocyte # 1.81 X10^3/ul (0.83-4.51); Lymphocyte % 16.6 % (19-41); Mean Corp Hgb Conc 34.8 g/dL (32-36); Mean Corpuscular Hgb 30.6 pg (27.0-32.0); Mean Corpuscular Volume 87.9 fL (81-99); Mean Platelet Vol. 9.1 fl (6.2-12.0); Monocyte# 0.66 X10^3/uL; NRBC Flagged by Analyzer 0 % (0-5); Neutrophil # 8.17 X10^3/uL (2.7-7.7); Neutrophil % 74.9 % (47-70); Platelet Count 353 K/mm3 (150-450); RBC Distribution Width CV 12.8 % (11.6-14.6); RBC Distribution Width SD 41.8 fl (35.1-43.9); Red Blood Count 5.13 M/mm3 (4.2-5.4); White Blood Count 10.9 K/mm3 (4.4-11.0)
[2021-07-01 22:49] LABS: ALB/GLOB Ratio 0.9 RATIO (0.9-2.4); AST(SGOT) 22 U/L (15-37); Alanine Aminotransfer ALT/SGPT 28 U/L (13-56); Albumin, Serum 3.6 g/dL (3.2-5.0); Alkaline Phosphatase 51 U/L (45-117); Anion Gap 6 (5-15); BUN 24 mg/dL (7-18); BUN/Creat Ratio 22.6 RATIO (10-20); Calcium,Total 10.2 mg/dL (8.5-10.1); Chloride 98 mmol/L (98-107); Cholesterol 198 mg/dL (200); Creatinine, Serum 1.06 mg/dL (0.55-1.02); EST Glomerular Filtration Rate 54 mL/min (>60); Est Glom Filt Rate - Afr Amer 65 mL/min (>60); Globulin 3.9 g/dL (2.2-4.2); Glucose 124 mg/dL (74-106); High Density Lipoprotein 53 mg/dL; Potassium 3.8 mmol/L (3.5-5.1); Protein, Total 7.5 g/dL (6.4-8.2); Sodium Level 133 mmol/L (136-145); Thyroid Stim Hormone (TSH) 0.49 uIU/mL (0.358-3.74); Triglycerides 238 mg/dL; Very Low Density Lipoprotein 48 mg/dL (5-40)
== END | disposition home or self-care (01) ==
PROVIDERS: Referring Provider Nurse Practitioner; Visit Provider Nurse Practitioner
DX: I10 Essential (primary) hypertension (principal)
CPT/HCPCS: 80053; 80061; 84443; 85025

== ENCOUNTER → 2022-01-30 | Outpatient (CLI) | payer MEDICARE, OTHER, SELFPAY ==
[2022-01-30 23:47] LABS: ALB/GLOB Ratio 0.9 RATIO (0.9-2.4); AST(SGOT) 27 U/L (15-37); Alanine Aminotransfer ALT/SGPT 35 U/L (13-56); Albumin, Serum 3.6 g/dL (3.2-5.0); Alkaline Phosphatase 55 U/L (45-117); Anion Gap 7 (5-15); BUN 16 mg/dL (7-18); BUN/Creat Ratio 19.2 RATIO (10-20); Calcium,Total 9.6 mg/dL (8.5-10.1); Chloride 97 mmol/L (98-107); Creatinine, Serum 0.83 mg/dL (0.55-1.02); EST Glomerular Filtration Rate 71 mL/min (>60); Est Glom Filt Rate - Afr Amer 86 mL/min (>60); Globulin 3.8 g/dL (2.2-4.2); Glucose 96 mg/dL (74-106); Potassium 4.2 mmol/L (3.5-5.1); Protein, Total 7.4 g/dL (6.4-8.2); Sodium Level 133 mmol/L (136-145); Thyroid Stim Hormone (TSH) 0.41 uIU/mL (0.358-3.74)
[2022-01-31 10:36] LABS: PTHIN 37.6 pg/mL (18.4-80.1)
== END | disposition home or self-care (01) ==
PROVIDERS: PCP Nurse Practitioner; Referring Provider Nurse Practitioner; Visit Provider Nurse Practitioner
DX: E83.52 Hypercalcemia (principal); I10 Essential (primary) hypertension
CPT/HCPCS: 80053; 83970; 84443

== ENCOUNTER → 2022-07-22 | Outpatient (CLI) | payer MEDICARE, OTHER, SELFPAY ==
[2022-07-22 22:18] LABS: Absolute Lymphocyte Count 1.92 X10^3/uL (0.83-4.51); Absolute Neutrophil Count 5.3 X10^3/uL (2.0-7.7); Basophil# 0.07 X10^3/uL; Basophil% 0.8 % (0-1); Eosinophil# 0.27 X10^3/uL; Eosinophils% 3.2 % (0-5); Hematocrit 43.8 % (37-47); Hemoglobin 15.4 g/dL (12.0-15.0); Lymphocyte # 1.92 X10^3/ul (0.83-4.51); Mean Corp Hgb Conc 35.2 g/dL (32-36); Mean Corpuscular Hgb 30.5 pg (27.0-32.0); Mean Corpuscular Volume 86.7 fL (81-99); Mean Platelet Vol. 9.4 fl (6.2-12.0); Monocyte# 0.71 X10^3/uL; Monocyte% 8.5 % (0-10); NRBC Flagged by Analyzer 0 % (0-5); Neutrophil # 5.33 X10^3/uL (2.7-7.7); Neutrophil % 64.1 % (47-70); Platelet Count 320 K/mm3 (150-450); RBC Distribution Width SD 40.7 fl (35.1-43.9); Red Blood Count 5.05 M/mm3 (4.2-5.4); White Blood Count 8.3 K/mm3 (4.4-11.0)
[2022-07-22 22:44] LABS: AST(SGOT) 24 U/L (15-37); Alanine Aminotransfer ALT/SGPT 32 U/L (13-56); Albumin, Serum 3.7 g/dL (3.2-5.0); Alkaline Phosphatase 58 U/L (45-117); Anion Gap 9 (5-15); BUN 15 mg/dL (7-18); BUN/Creat Ratio 19.7 RATIO (10-20); Calcium,Total 9.3 mg/dL (8.5-10.1); Chloride 97 mmol/L (98-107); Cholesterol 235 mg/dL (200); Creatinine, Serum 0.76 mg/dL (0.55-1.02); EST Glomerular Filtration Rate 78 mL/min (>60); Est Glom Filt Rate - Afr Amer 95 mL/min (>60); Globulin 3.6 g/dL (2.2-4.2); Glucose 102 mg/dL (74-106); High Density Lipoprotein 45 mg/dL; Potassium 3.6 mmol/L (3.5-5.1); Protein, Total 7.3 g/dL (6.4-8.2); Sodium Level 133 mmol/L (136-145); Thyroid Stim Hormone (TSH) 0.08 uIU/mL (0.358-3.74); Triglycerides 287 mg/dL; Very Low Density Lipoprotein 57 mg/dL (5-40)
== END | disposition home or self-care (01) ==
PROVIDERS: PCP Nurse Practitioner; Visit Provider Nurse Practitioner
DX: Z00.00 Encounter for general adult medical examination without abnormal findings (principal)
CPT/HCPCS: 80053; 80061; 84443; 85025

== ENCOUNTER → 2023-03-02 | Outpatient (CLI) | payer MEDICARE, OTHER, SELFPAY | END | disposition home or self-care (01) | PROVIDERS: PCP Nurse Practitioner; Visit Provider Nurse Practitioner | DX: T81.89XA Other complications of procedures, not elsewhere classified, initial encounter (principal); H66.92 Otitis media, unspecified, left ear; X58.XXXA Exposure to other specified factors, initial encounter | CPT/HCPCS: 87070; 87205 ==

== ENCOUNTER → 2023-07-20 | Outpatient (CLI) | payer MEDICARE, OTHER, SELFPAY ==
--- OUTSIDE RECORDS SUMMARY | 2023-07-20 21:56 | XMS RPT_ITS | CCD ---
Author Name Unknown Address [address] [facility] [address] [place] [id number] Organization [facility] Care Team Providers Care Surveyor Helper Rod Name Role Phone Jayme NUNN.Tony SERRANO Primary Care Provide r HARIS STRONG Referring Unavailable GRISSOM, TONY Erinn Primary Care Unavailable HARIS STRONG Referring Unavailable GRISSOM, TONY Erinn Primary Care Unavailable GRISSOM, TONY L Referring Unavailable GRISSOM, TONY L Primary Care Unavailable GRISSOM, TONY L Referring Unavailable GRISSOM, TONY L Primary Care Unavailable GRISSOM, TONY L Primary Care Unavailable Grissom, Tony Primary Care Provider [phone] VERITO HITCHCOCK Referring Unavailable GRISSOM, TONY Primary Care Unavailable VERITO HITCHCOCK Referring Unavailable GRISSOM, TONY Primary Care Unavailable VERITO HITCHCOCK Attending Unavailable GRISSOM, TONY Primary Care Unavailable Allergies Allergy Classification Reported Allergen(s) Allergy Type Date of Onset Reaction(s) Facility (7 sources) Adhesive Tape; Translations: [ADHESIVE TAPE (ROSINS)] Allergy to substance 0 Rash [facility] (12 sources) Amoxicillin; Translations: [AMOXICILLIN] Drug Allergy 1 GI Upset, Nausea Only [facility] (12 sources) Amoxicillin / Clavulanate; Translations: [AMOXICILLIN-POT CLAVULANATE] Drug Allergy 1 GI Upset, Nausea Only [facility] (7 sources) metaxalone; Translations: [METAXALONE] Drug Allergy 1 GI Upset [facility] (7 sources) Nitrofurantoin; Translations: [NITROFURANTOIN MACROCRYSTALLINE] Drug Allergy 4 Rash [facility] (5 sources) metaxalone Drug Allergy 1 Nausea Only [facility] (5 sources) Nitrofurantoin Drug Allergy 4 [place] (5 sources) Wound Dressing Adhesive Drug Allergy 0 [facility] Tune Medications Current Medications Medication Drug Class(es) Dates Sig (Normalized) Sig (Original) [id number] 200 actuat albuterol 0.09 mg/actuat metered dose inhaler (5 sources) beta2-Adrenergic Agonist Start: 04-08-2023 End: 04-07-2024 take 2 puff(s) by inhalation every six hours as needed for wheezing albuterol 108 (90 Base) MCG/ACT inhaler Inhale 2 puffs every 6 hours as needed for wheezing. 18 g 0 04/08/2023 04/07/2024 Active Nirmatrelvir&Riton avir 300/100 (Paxlovid, 300/100,) 20 x 150 MG & 10 x 100MG tablet therapy pack (5 sources) Start: 04-08-2023 End: 04-13-2023 take 3 tablets by mouth every twelve hours Nirmatrelvir&Carlton navir 300/100 (Paxlovid, 300/100,) 20 x 150 MG & 10 x 100MG tablet therapy pack Take 3 tablets by mouth in the morning and 3 tablets in the evening. Do all this for 5 days. 30 tablet 0 04/08/2023 04/13/2023 Active Completed/Discontinued Medications Medication Drug Class(es) Dates Sig (Normalized) Sig (Original) atenolol 100 mg / chlorthalidone 25 mg oral tablet (5 sources) Thiazide-like Diuretic, beta-Adrenergic Chiqui Atenolol-Chlorthali done 100-25 mg per tablet 1 tab(s) 0 Active Problems Active Problems Problem Classification Problem Date Documented Da te Episodic/Chronic Fluid and electrolyte disorders (4 sources) Hyponatremia; Translations: [Hypo-osmolality and hyponatremia] Onset: 04-08-2023 04-08-2023 Episodic Osteoporosis (1 source) Age-related osteoporosis without current pathological fracture; Translations: [Age-related osteoporosis without current pathological fracture] Onset: 09-18-2022 Chronic Other connective tissue disease (1 source) Other enthesopathies, not elsewhere classified; Translations: [Other enthesopathies, not elsewhere classified] Onset: 03-03-2023 Episodic Viral infection (2 sources) Disease caused by 2019-nCoV; Translations: [COVID-19] 04-08-2023 Episodic Viral infection (2 sources) COVID-19; Translations: [COVID-19] Onset: 04-08-2023 Past or Other Problems Problem Classification Problem Date Documented Da te Episodic/Chronic Abdominal pain (1 source) Generalized abdominal pain; Translations: [Generalized abdominal pain] Onset: 12-19-2021 Episodic Other gastrointestinal disorders (1 source) Diarrhea, unspecified; Translations: [Diarrhea, unspecified] Onset: 12-19-2021 Episodic Other screening for suspected conditions (not mental disorders or infectious disease) (1 source) Encounter for screening mammogram for malignant neoplasm of breast; Translations: [Encounter for screening mammogram for malignant neoplasm of breast] Onset: 09-18-2022 Episodic Results Test Name Value Interpretation Reference Range Facil ity Vital Signs Date Time Vital Sign Value Performing Clinician Faci lity 04-08-2023 07:29-0400 Diastolic blood pressure 61 mm[Hg] Verito Hitchcock MD Work Phone: [facility] 04-08-2023 07:29-0400 Heart rate 69 /min Verito Hitchcock MD Work Phone: [facility] 04-08-2023 07:29-0400 Respiratory rate 16 /min Verito Hitchcock MD Work Phone: [facility] 04-08-2023 07:29-0400 SaO2% (BldA) [Mass fraction] 95 % Verito Hitchcock MD Work Phone: [facility] 04-08-2023 07:29-0400 Systolic blood pressure 129 mm[Hg] Verito Walsh Work Phone: [facility] 04-08-2023 06:11-0400 Body height 157.5 cm Verito Hitchcock MD Work Phone: [facility] 04-08-2023 06:11-0400 Body mass index (BMI) [Ratio] 24.69 kg/m2 Verito Hitchcock MD Work Phone: [facility] 04-08-2023 06:11-0400 Body temperature 98.1 [degF] Verito Hitchcock MD Work Phone: [employer] 04-08-2023 06:11-0400 Body weight 61.24 kg Verito Hitchcock MD Work Phone: [facility] Encounters Encounter Date Encounter Type Care Provider Facility Start: 04-08-2023 End: 04-09-2023 Emergency department patient visit VERITO CORETTA [facility] Start: 04-08-2023 End: 04-08-2023 Subsequent hospital visit by physician Ivis Diaz [facility] Stress Procedures Date Procedure Procedure Detail Performing Clinician Start: 04-08-2023 Ecg routine ecg w/le ast 12 lds trcg only w/o i&r Verito Hitchcock MD Work Phone: Start: 04-08-2023 Radiologic exam ches t single view Verito Hitchcock MD Work Phone: Start: 04-08-2023 SARS-COV-2, FLU A/B, AND RSV COMBO Verito Hitchcock MD Work Phone: Start: 04-08-2023 Comprehensive metabo lic panel Verito Hitchcock MD Work Phone: Start: 09-18-2022 Dxa bone density mayi dy 1/> sites axial skel Tony Grissom THERMIT WELDING MACHINE OPERATOR.CLAIM CLERK Work Phone: Start: 09-18-2022 Screening mammograph y bi 2-view breast inc cad Tony Grissom THERMIT WELDING MACHINE OPERATOR.CLAIM CLERK Work Phone: Start: 12-19-2021 Ct abdomen & pelvis w/contrast material [facility] Provider Plan of Treatment Date Care Activity Detail Author Start: 05-18-2028 DTaP/Tdap/Td Vaccines (2 - Td or Tdap) DTaP/Tdap/Td Vaccines (2 - Td or Tdap) [facility] Start: 05-18-2028 Urine microalbumin profile [facility] Start: 12-12-2024 DIABETES SCREEN DIABETES SCREEN [facility] Start: 12-12-2024 Diabetes Screening Diabetes Screening [facility] Start: 03-13-2023 Covid-19 Vaccine ( season) Covid-19 Vaccine ( season) [facility] Start: 03-13-2023 Influenza vaccination [facility] Start: 08-01-2022 COVID-19 VACCINE (6 - Moderna series) COVID-19 VACCINE (6 - Moderna series) [facility] Start: 07-13-2022 ADVANCE DIRECTIVE DISCUSSION ADVANCE DIRECTIVE DISCUSSION [facility] Start: 07-13-2022 DEPRESSION ASSESSMENT DEPRESSION ASSESSMENT [facility] Start: 01-20-2017 LIPID SCREEN LIPID SCREEN [facility] Start: 11-19-2011 Pneumococcal Vaccine: 65+ (1 - PCV) Pneumococcal Vaccine: 65+ (1 - PCV) [facility] Start: 11-19-2011 Pneumococcal Vaccine: 65+ Years (1 - PCV) Pneumococcal Vaccine: 65+ Years (1 - PCV) [facility] Start: 11-19-2011 PNEUMOCOCCAL: 65+ (1 - PCV) PNEUMOCOCCAL: 65+ (1 - PCV) [facility] Start: 2006 RSV Vaccine (1 - 1-dose 60+ series) RSV Vaccine (1 - 1-dose 60+ series) [facility] Start: 11-19-1991 COLOGUARD (FIT-DNA) COLOGUARD (FIT-DNA) [facility] Start: 11-19-1991 Colonoscopy COLONOSCOPY [facility] Start: 11-19-1991 COLORECTAL CANCER SCREENING COLORECTAL CANCER SCREENING [facility] Start: 11-19-[address] COLONOGRAPHY [facility] Start: 11-19-1991 FECAL OCCULT BLOOD FECAL OCCULT BLOOD [facility] Start: 11-19-1991 SIGMOIDOSCOPY SIGMOIDOSCOPY [facility] Start: 1964 HEPATITIS C SCREENING HEPATITIS C SCREENING [facility] Start: 1964 Hepatitis C screening Hepatitis C Screening [facility] Start: 1958 Depression Screening Depression Screening [facility] Start: 1945 Medicare Annual Wellness (AWV) Medicare Annual Wellness (AWV) [facility] Start: 1945 Screening for osteoporosis Bone Density Scan [facility] ECG 12 lead ECG 12 lead CV E CG STAT 04/08/2023 1:51 PM EDT [facility] Work Phone: Immunizations Immunization Date Immunization Notes Care Provider Fa cili 04-23-2022 influenza virus vacc ine, unspecified formulation Verito Hitchcock MD Work Phone: [facility] 03-07-2020 zoster vaccine recombinant [facility] 09-07-2019 zoster vaccine recombinant [facility] 03-25-2019 influenza, high dose seasonal, preservative-free [facility] 05-18-2018 tetanus toxoid, redu iris diphtheria toxoid, and acellular pertussis vaccine, adsorbed Bone [facility] 08-09-2009 novel influenza-H1N1 -09, preservative-free, injectable Bone [facility] Payers Date Payer Category Payer Unknown AARP AARP [id number] 2022-Present [address] [place] [address] Supplement [id number] 2021 Private Health Insurance [facility] AARP SUPPLEMENT [id number] 2021-Present [phone] [address] [place] [address] Indemnity [id number] 2021 Unknown [id number] 2011 Medicare 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 Start: 12-08-2021 End: 12-18-2021 Exposure to SARS-CoV-2 (event) Not sure [facility] Procedure Code Equipment Code Equipment Origin al Text Equipment Identifier Dates Edson Bn Endur 40g m Syringeable - [id number] Start: 12-03-2010 [employer] Im plant - [id number] Start: 12-03-2010 Clinical Notes 12-19-2021 to 04-08-2023 Discharge InstructionsAttachmentsVerito Hitchcock MD - 04/08/2023 6:02 AM EDTRegulo Harris MD - 04/08/2023 6:02 AM EDTHaris Flores RN - 04/08/2023 6:02 AM EDT Note Date & Type Note Facility 04-08-2023 Note I did take over for Dr Hitchcock at 7 am at change of shift. Please see his note for initial evaluation and history and physical. Patient is here for weakness/cough. Lab work was initiated and fluids were initiated as well. Cbc showed a white count of 16. Sodium level was 124. Troponin level was normal. Chest film did not show any obvious pneumonia. Covid swab came back as positive. I did let patient know about all findings. I did discuss admission to the CDU at [facility] with patient. However, she declined this option. Patient was not hypoxic here. I discharged patient on paxlovid and an inhaler. Final diagnosis was covid/hyponatremia. Patient was discharged and was encouraged to self quarantine for the next 6 days Regulo Harris MD 04/08/23 0732 Regulo Harris MD 04/08/23 0736 [facility] 04-08-2023 Hospital Discharg e instructions Regulo Harris MD - 04/08/2023 7:33 AM EDT Drink lots of fluids; If symptoms get worse, please go to [facility] ED for possible admission The following attachments cannot be sent through Care Everywhere.COVID-19 Overview (Icelandic)Hyponatremia (Icelandic)documented in this encounter [facility] 04-08-2023 Emergency department Note EMERGENCY DEPARTMENT ENCOUNTER Pt Name: Fanny Martinez Birthdate 1945 Date of evaluation: 04/08/2023 ED Provider: VERITO HITCHCOCK MD CHIEF COMPLAINT Chief Complaint Patient presents with Weakness, Gen HISTORY OF PRESENT ILLNESS I wore appropriate PPE for the entirety of this encounter. HPI Fanny Martinez is a 77 y.o. female who presents to the emergency department complaining of not feeling well for the last few days. She complains of congestion. There has been a slight cough. She has had myalgias. She has recently been on vacation as well. She is vaccinated against COVID-19. She has a history of hypertension as well as thyroid disease. The patient arrives by EMS. Her drove himself in to the emergency department. Nursing Notes were reviewed. Limitations to history: None Outside historians: None REVIEW OF SYSTEMS Review of Systems Constitutional: Negative for chills and fever. HENT: Positive for congestion. Negative for ear pain and sore throat. Eyes: Negative for pain and visual disturbance. Respiratory: Positive for cough and shortness of breath. Cardiovascular: Negative for chest pain and palpitations. Gastrointestinal: Negative for abdominal pain and vomiting. Genitourinary: Negative for dysuria and hematuria. Musculoskeletal: Positive for myalgias. Negative for arthralgias and back pain. Skin: Negative for color change and rash. Neurological: Positive for weakness. Negative for seizures and syncope. All other systems reviewed and are negative. PAST MEDICAL HISTORY No past medical history on file. SURGICAL HISTORY No past surgical history on file. CURRENT MEDICATIONS Previous Medications No medications on file ALLERGIES Amoxicillin, Amoxicillin-pot clavulanate, Metaxalone, Nitrofurantoin, and Wound dressing adhesive FAMILY HISTORY No family history on file. SOCIAL HISTORY Social History Socioeconomic History Marital status: SCREENINGS PHYSICAL EXAM ED Triage Vitals [04/08/23 0611] Temp Heart Rate Resp BP 36.7 C (98.1 F) 68 16 136/61 SpO2 Temp Source Heart Rate Source Patient Position 95 % Oral Monitor Lying BP Location FiO2 (%) Right arm -- Physical Exam Vitals and nursing note reviewed. Constitutional: General: She is not in acute distress. Appearance: She is well-developed. Comments: The patient is an older female found lying on a cart. She is alert and oriented. She answers questions appropriately. She is in minimal distress. HENT: Head: Normocephalic and atraumatic. Eyes: Conjunctiva/sclera: Conjunctivae normal. Cardiovascular: Rate and Rhythm: Normal rate and regular rhythm. Heart sounds: No murmur heard. Pulmonary: Effort: Pulmonary effort is normal. No respiratory distress. Breath sounds: Normal breath sounds. Abdominal: Palpations: Abdomen is soft. Tenderness: There is no abdominal tenderness. Musculoskeletal: General: No swelling. Cervical back: Neck supple. Skin: General: Skin is warm and dry. Capillary Refill: Capillary refill takes less than 2 seconds. Neurological: Mental Status: She is alert. Psychiatric: Mood and Affect: Mood normal. DIAGNOSTIC RESULTS RADIOLOGY (Per Emergency Physician): Interpretation per the Radiologist below, if available at the time of this note: XR chest 1 view (Results Pending) EKG Interpretation: An EKG is obtained. It demonstrates a normal sinus rhythm with a rate of 68. QRS axis is [address] segment findings are found. Nonspecific ST segment findings are present. There is no evidence of an ST elevation LA. LABS: Labs Reviewed SARS-COV-2, FLU A/B, AND RSV COMBO COMPLETE URINALYSIS WITH REFLEX TO CULTURE Narrative: The following orders were created for panel order Urinalysis complete with reflex to Culture. Procedure Abnormality Status --------- ------ Complete Urinalysis[[id number]] Please view results for these tests on the individual orders. CBC WITH AUTO DIFFERENTIAL COMPREHENSIVE METABOLIC PANEL NT PRO BNP TROPONIN I COMPLETE URINALYSIS All other labs were within normal range or not returned as of this dictation. EMERGENCY DEPARTMENT COURSE and DIFFERENTIAL DIAGNOSIS/MDM: Vitals: Vitals: 04/08/23 0611 BP: 136/61 BP Location: Right arm Patient Position: Lying Pulse: 68 Resp: 16 Temp: 36.7 C (98.1 F) TempSrc: Oral SpO2: 95% Weight: 61.2 kg (135 lb) Height: 1.575 m (5' 2 ) Medications Administered in the ED: Medications sodium chloride 0.9 % infusion (125 mL/hr IntraVENous New Bag 04/08/23 0638) Stu HITCHCOCK MD am the outreach clinician of record. PROCEDURES: Unless otherwise noted below, none Procedures Differential Diagnosis Considerations: Differential diagnosis includes viral upper respiratory infection, lower respiratory infection, exacerbation of CHF, pneumonia, myocardial ischemia. ED testing and evaluation will be obtained to help differentiate these diagnostic possibilities and determine the most likely cause. Sources of History: I evaluated other historical sources including previous outpatient records and admission records. ED Course: In the emergency department I initially evaluated the patient with a history and physical examination in order to determine diagnostic testing and therapeutic care. On the basis of this history and physical examination a chest x-ray is ordered along with laboratory work. An EKG is obtained. Reassessment: The patient will be endorsed to the next emergency physician. Disposition will be based on results of diagnostic testing and reassessment. Consideration of Admission/Observation: At this point is unclear whether the patient will require admission. I am concerned that the patient may have pneumonia. Independent Interpretation of Tests: I independently evaluated the results of the patient's diagnostic testing in the context of the patient's presentation. Diagnostic Tests Considered but not Performed: I have ordered a chest x-ray on the patient. I have considered a CTA of the chest. However at this time I believe a portable chest x-ray is adequate for the purpose of diagnosis. Prescription Medications Considered but not Prescribed: At this time antibiotics have not been provided to the patient. Is unclear whether the patient has a viral illness versus bacterial cause of her congestion. Chronic Conditions Affecting Care: None FINAL IMPRESSION No diagnosis found. DISPOSITION PATIENT REFERRED TO: No follow-up provider specified. DISCHARGE MEDICATIONS: New Prescriptions No medications on file (Comment: Please note this report has been produced using speech recognition software and may contain errors related to that system including errors in grammar, punctuation, and spelling, as well as words and phrases that may be inappropriate. If there are any questions or concerns please feel free to contact the dictating provider for clarification.) VERITO HITCHCOCK MD (electronically signed) Emergency Medicine Provider Verito Hitchcock MD 04/08/23 0644 I did take over for Dr Hitchcock at 7 am at change of shift. Please see his note for initial evaluation and history and physical. Patient is here for weakness/cough. Lab work was initiated and fluids were initiated as well. Cbc showed a white count of 16. Sodium level was 124. Troponin level was normal. Chest film did not show any obvious pneumonia. Covid swab came back as positive. I did let patient know about all findings. I did discuss admission to the CDU at [facility] with patient. However, she declined this option. Patient was not hypoxic here. I discharged patient on paxlovid and an inhaler. Final diagnosis was covid/hyponatremia. Patient was discharged and was encouraged to self quarantine for the next 6 days Regulo Harris MD 04/08/23 0732 Regulo Harris MD 04/08/23 0736 Pt arrived to ED via ambulance for a complaint of generalized weakness which started yesterday. Pt came home from vacation one week ago. Pt has non productive cough. Pt stated that has been sick for approximately a week or so. Pt states that chest and head feel congested, but no chest pain. Pt laying in bed with call light. documented in this encounter [facility] 04-08-2023 Emergency department Triage note Pt arrived to ED via ambulance for a complaint of generalized weakness which started yesterday. Pt came home from vacation one week ago. Pt has non productive cough. Pt stated that has been sick for approximately a week or so. Pt states that chest and head feel congested, but no chest pain. Pt laying in bed with call light. [facility] 04-08-2023 Physician Emergency department Note EMERGENCY DEPARTMENT ENCOUNTER Pt Name: Fanny Martinez Birthdate 1945 Date of evaluation: 04/08/2023 ED Provider: VERITO HITCHCOCK MD CHIEF COMPLAINT Chief Complaint Patient presents with Weakness, Gen HISTORY OF PRESENT ILLNESS I wore appropriate PPE for the entirety of this encounter. HPI Fanny Martinez is a 77 y.o. female who presents to the emergency department complaining of not feeling well for the last few days. She complains of congestion. There has been a slight cough. She has had myalgias. She has recently been on vacation as well. She is vaccinated against COVID-19. She has a history of hypertension as well as thyroid disease. The patient arrives by EMS. Her drove himself in to the emergency department. Nursing Notes were reviewed. Limitations to history: None Outside historians: None REVIEW OF SYSTEMS Review of Systems Constitutional: Negative for chills and fever. HENT: Positive for congestion. Negative for ear pain and sore throat. Eyes: Negative for pain and visual disturbance. Respiratory: Positive for cough and shortness of breath. Cardiovascular: Negative for chest pain and palpitations. Gastrointestinal: Negative for abdominal pain and vomiting. Genitourinary: Negative for dysuria and hematuria. Musculoskeletal: Positive for myalgias. Negative for arthralgias and back pain. Skin: Negative for color change and rash. Neurological: Positive for weakness. Negative for seizures and syncope. All other systems reviewed and are negative. PAST MEDICAL HISTORY No past medical history on file. SURGICAL HISTORY No past surgical history on file. CURRENT MEDICATIONS Previous Medications No medications on file ALLERGIES Amoxicillin, Amoxicillin-pot clavulanate, Metaxalone, Nitrofurantoin, and Wound dressing adhesive FAMILY HISTORY No family history on file. SOCIAL HISTORY Social History Socioeconomic History Marital status: SCREENINGS PHYSICAL EXAM ED Triage Vitals [04/08/23 0611] Temp Heart Rate Resp BP 36.7 C (98.1 F) 68 16 136/61 SpO2 Temp Source Heart Rate Source Patient Position 95 % Oral Monitor Lying BP Location FiO2 (%) Right arm -- Physical Exam Vitals and nursing note reviewed. Constitutional: General: She is not in acute distress. Appearance: She is well-developed. Comments: The patient is an older female found lying on a cart. She is alert and oriented. She answers questions appropriately. She is in minimal distress. HENT: Head: Normocephalic and atraumatic. Eyes: Conjunctiva/sclera: Conjunctivae normal. Cardiovascular: Rate and Rhythm: Normal rate and regular rhythm. Heart sounds: No murmur heard. Pulmonary: Effort: Pulmonary effort is normal. No respiratory distress. Breath sounds: Normal breath sounds. Abdominal: Palpations: Abdomen is soft. Tenderness: There is no abdominal tenderness. Musculoskeletal: General: No swelling. Cervical back: Neck supple. Skin: General: Skin is warm and dry. Capillary Refill: Capillary refill takes less than 2 seconds. Neurological: Mental Status: She is alert. Psychiatric: Mood and Affect: Mood normal. DIAGNOSTIC RESULTS RADIOLOGY (Per Emergency Physician): Interpretation per the Radiologist below, if available at the time of this note: XR chest 1 view (Results Pending) EKG Interpretation: An EKG is obtained. It demonstrates a normal sinus rhythm with a rate of 68. QRS axis is [address] segment findings are found. Nonspecific ST segment findings are present. There is no evidence of an ST elevation LA. LABS: Labs Reviewed SARS-COV-2, FLU A/B, AND RSV COMBO COMPLETE URINALYSIS WITH REFLEX TO CULTURE Narrative: The following orders were created for panel order Urinalysis complete with reflex to Culture. Procedure Abnormality Status --------- ------ Complete Urinalysis[[id number]] Please view results for these tests on the individual orders. CBC WITH AUTO DIFFERENTIAL COMPREHENSIVE METABOLIC PANEL NT PRO BNP TROPONIN I COMPLETE URINALYSIS All other labs were within normal range or not returned as of this dictation. EMERGENCY DEPARTMENT COURSE and DIFFERENTIAL DIAGNOSIS/MDM: Vitals: Vitals: 04/08/23 0611 BP: 136/61 BP Location: Right arm Patient Position: Lying Pulse: 68 Resp: 16 Temp: 36.7 C (98.1 F) TempSrc: Oral SpO2: 95% Weight: 61.2 kg (135 lb) Height: 1.575 m (5' 2 ) Medications Administered in the ED: Medications sodium chloride 0.9 % infusion (125 mL/hr IntraVENous New Bag 04/08/23 0638) Stu HITCHCOCK MD am the outreach clinician of record. PROCEDURES: Unless otherwise noted below, none Procedures Differential Diagnosis Considerations: Differential diagnosis includes viral upper respiratory infection, lower respiratory infection, exacerbation of CHF, pneumonia, myocardial ischemia. ED testing and evaluation will be obtained to help differentiate these diagnostic possibilities and determine the most likely cause. Sources of History: I evaluated other historical sources including previous outpatient records and admission records. ED Course: In the emergency department I initially evaluated the patient with a history and physical examination in order to determine diagnostic testing and therapeutic care. On the basis of this history and physical examination a chest x-ray is ordered along with laboratory work. An EKG is obtained. Reassessment: The patient will be endorsed to the next emergency physician. Disposition will be based on results of diagnostic testing and reassessment. Consideration of Admission/Observation: At this point is unclear whether the patient will require admission. I am concerned that the patient may have pneumonia. Independent Interpretation of Tests: I independently evaluated the results of the patient's diagnostic testing in the context of the patient's presentation. Diagnostic Tests Considered but not Performed: I have ordered a chest x-ray on the patient. I have considered a CTA of the chest. However at this time I believe a portable chest x-ray is adequate for the purpose of diagnosis. Prescription Medications Considered but not Prescribed: At this time antibiotics have not been provided to the patient. Is unclear whether the patient has a viral illness versus bacterial cause of her congestion. Chronic Conditions Affecting Care: None FINAL IMPRESSION No diagnosis found. DISPOSITION PATIENT REFERRED TO: No follow-up provider specified. DISCHARGE MEDICATIONS: New Prescriptions No medications on file (Comment: Please note this report has been produced using speech recognition software and may contain errors related to that system including errors in grammar, punctuation, and spelling, as well as words and phrases that may be inappropriate. If there are any questions or concerns please feel free to contact the dictating provider for clarification.) VERITO HITCHCOCK MD (electronically signed) Emergency Medicine Provider Verito Hitchcock MD 04/08/2344 [employer] Phone: 04-08-2023 Physician Emergency department Note I did take over for Dr Hitchcock at 7 am at change of shift. Please see his note for initial evaluation and history and physical. Patient is here for weakness/cough. Lab work was initiated and fluids were initiated as well. Cbc showed a white count of 16. Sodium level was 124. Troponin level was normal. Chest film did not show any obvious pneumonia. Covid swab came back as positive. I did let patient know about all findings. I did discuss admission to the CDU at [facility] with patient. However, she declined this option. Patient was not hypoxic here. I discharged patient on paxlovid and an inhaler. Final diagnosis was covid/hyponatremia. Patient was discharged and was encouraged to self quarantine for the next 6 days Regulo Harris MD 04/08/23 0732 Regulo Harris MD 04/08/23 0736 [facility] 03-03-2023 Note HNO ID: [id number] Author: Tonia Hurd CT Service: Radiology Author Type: Technologist Type: Progress Notes Filed: 03/03/2023 1:44 PM Note Text: Radiology Service Progress Note PATIENT NAME: Fanny Martinez DATE OF SERVICE: March 03, 2023 TIME: 1:43 PM PATIENT IDENTITY VERIFICATION COMPLETED USING TWO (2) IDENTIFIERS: Name and Date of confirmed by patient verbally. FALL SCREENING: Has the patient had 2 falls in the last year or 1 fall with injury or currently using an Ambulatory Assistive Device (Walker, Cane, Wheelchair, Crutches, etc.)? No PATIENT GENDER DATA: Female. status: : No status: NO. PATIENT RELEVANT IMPLANT DATA REVIEWED: Not Applicable RADIOLOGY DEPARTMENT: General X-ray: Exam(s) Completed: Upper Extremity X-Ray(s): Shoulder, AP / TRUE AP left PERIPHERAL IV DATA: Not applicable SIGNED BY: MYLA Martinez March 03, 2023 1:43 PM [facility] 03-03-2023 History of Presen t illness Narrative Radiology Service Progress Note PATIENT NAME: Fanny Martinez DATE OF SERVICE: March 03, 2023 TIME: 1:43 PM PATIENT IDENTITY VERIFICATION COMPLETED USING TWO (2) IDENTIFIERS: Name and Date of confirmed by patient verbally. FALL SCREENING: Has the patient had 2 falls in the last year or 1 fall with injury or currently using an Ambulatory Assistive Device (Walker, Cane, Wheelchair, Crutches, etc.)? No PATIENT GENDER DATA: Female. status: : No status: NO. PATIENT RELEVANT IMPLANT DATA REVIEWED: Not Applicable RADIOLOGY DEPARTMENT: General X-ray: Exam(s) Completed: Upper Extremity X-Ray(s): Shoulder, AP / TRUE AP left PERIPHERAL IV DATA: Not applicable SIGNED BY: MYLA Martinez March 03, 2023 1:43 PM documented in this encounter [facility] 09-18-2022 Note HNO ID: [id number] Author: MYLA Gutierrez Service: Radiology Author Type: Technologist Type: Progress Notes Filed: 09/18/2022 10:34 AM Note Text: Radiology Service Progress Note PATIENT NAME: Fanny Martinez DATE OF SERVICE: September 18, 2022 TIME: 10:34 AM PATIENT IDENTITY VERIFICATION COMPLETED USING TWO (2) IDENTIFIERS: Name and Date of confirmed by patient verbally. FALL SCREENING: Has the patient had 2 falls in the last year or 1 fall with injury or currently using an Ambulatory Assistive Device (Walker, Cane, Wheelchair, Crutches, etc.)? No PATIENT GENDER DATA: Female. status: : No status: NO. PATIENT RELEVANT IMPLANT DATA REVIEWED: Not Applicable RADIOLOGY DEPARTMENT: Mammography PERIPHERAL IV DATA: Not applicable SIGNED BY: MYLA Gutierrez September 18, 2022 10:34 AM [facility] 09-18-2022 Note HNO ID: [id number] Author: RT Tracy(Batsheva) Service: Radiology Author Type: Technologist Type: Progress Notes Filed: 09/18/2022 10:49 AM Note Text: Radiology Service Progress Note PATIENT NAME: Fanny Martinez DATE OF SERVICE: September 18, 2022 TIME: 10:49 AM PATIENT IDENTITY VERIFICATION COMPLETED USING TWO (2) IDENTIFIERS: Name and Date of confirmed by patient verbally. FALL SCREENING: Has the patient had 2 falls in the last year or 1 fall with injury or currently using an Ambulatory Assistive Device (Walker, Cane, Wheelchair, Crutches, etc.)? No PATIENT GENDER DATA: Female. status: : No status: NO. PATIENT RELEVANT IMPLANT DATA REVIEWED: Not Applicable RADIOLOGY DEPARTMENT: Bone Density PERIPHERAL IV DATA: Not applicable SIGNED BY: RT Matt(R) September 18, 2022 10:49 AM [facility] 09-18-2022 History of Presen t illness Narrative Radiology Service Progress Note PATIENT NAME: Fanny Martinez DATE OF SERVICE: September 18, 2022 TIME: 10:34 AM PATIENT IDENTITY VERIFICATION COMPLETED USING TWO (2) IDENTIFIERS: Name and Date of confirmed by patient verbally. FALL SCREENING: Has the patient had 2 falls in the last year or 1 fall with injury or currently using an Ambulatory Assistive Device (Walker, Cane, Wheelchair, Crutches, etc.)? No PATIENT GENDER DATA: Female. status: : No status: NO. PATIENT RELEVANT IMPLANT DATA REVIEWED: Not Applicable RADIOLOGY DEPARTMENT: Mammography PERIPHERAL IV DATA: Not applicable SIGNED BY: MYLA Gutierrez September 18, 2022 10:34 AM documented in this encounter [facility] 09-18-2022 Miscellaneous Notes September 19, 2022 PID: [id number] Fanny Martinez [address] [place] [id number] Dear Otis Tim, We are pleased to inform you that the results of your recent breast imaging exam on 09/18/2022 are normal. Early detection of cancer is very important. We also understand recommendations regarding breast cancer screening are controversial. Please discuss with your primary care provider which strategy is best for you and whether a mammogram is right for you. Your imaging studies and report will be kept on file at [facility] as part of your permanent medical record and are available for your continuing care. Thank you for allowing us to help in meeting your health care needs. Sincerely, Dr. Barraza Interpreting Radiologist [facility] (Normal over 40) documented in this encounter [facility] 09-18-2022 History of Presen t illness Narrative Radiology Service Progress Note PATIENT NAME: Fanny Martinez DATE OF SERVICE: September 18, 2022 TIME: 10:49 AM PATIENT IDENTITY VERIFICATION COMPLETED USING TWO (2) IDENTIFIERS: Name and Date of confirmed by patient verbally. FALL SCREENING: Has the patient had 2 falls in the last year or 1 fall with injury or currently using an Ambulatory Assistive Device (Walker, Cane, Wheelchair, Crutches, etc.)? No PATIENT GENDER DATA: Female. status: : No status: NO. PATIENT RELEVANT IMPLANT DATA REVIEWED: Not Applicable RADIOLOGY DEPARTMENT: Bone Density PERIPHERAL IV DATA: Not applicable SIGNED BY: Imani Teague RT(R) September 18, 2022 10:49 AM documented in this encounter [facility] 12-19-2021 Note HNO ID: [id number] Author: Charla Marsh RN Service: Radiology Author Type: Registered Nurse Type: Progress Notes Filed: 12/19/2021 1:24 PM Note Text: Radiology Service Progress Note DATE OF SERVICE: December 19, 2021 TIME: 1:23 PM PATIENT WEIGHT: 138 LBS PATIENT IDENTITY VERIFICATION COMPLETED USING TWO (2) STANDARD IDENTIFIERS: Name and Date of confirmed by patient verbally. FALL SCREENING: Has the patient had 2 falls in the last year or 1 fall with injury or currently using an Ambulatory Assistive Device (Walker, Cane, Wheelchair, Crutches, etc.)? No PATIENT GENDER DATA: Female. status: : No status: NO. ALLERGIES: Reviewed and unchanged CONTRAST ALLERGY: No EXAM: CT -CONTRAST INDUCED NEPHROPATHY RISK FACTORS: Patient age > 60 years CREATININE: Creatinine Date Value Ref Range Status 12/12/2021 0.80 0.58 - 0.96 mg/dL Final 10/23/2017 0.86 0.58 - 0.96 mg/dL Final 11/06/2014 0.83 0.70 - 1.40 mg/dL Final Estimated Glomerular Filtration Rate Date Value Ref Range Status 12/12/2021 77 >=60 mL/min/1.73m? Final Comment: Estimated Glomerular Filtration Rate (eGFR) is calculated using the 2020 CKD-EPI creatinine equation. This equation utilizes serum creatinine, sex, and age as parameters. The creatinine assay has traceable calibration to isotope dilution-mass spectrometry. Refer to KDIGO guidelines for clinical interpretation. In patients with unstable renal function, e.g. those with acute kidney injury, the eGFR may not accurately reflect actual GFR. eGFR- Date Value Ref Range Status 10/23/2017 >60 Final P.O.C.T. RESULTS: N/A December 19, 2021 TREATMENT: No Hydration needed. IV SITE: Ambulatory: A peripheral IV was started in the Right forearm with a Angio cath: 22 gauge. and A Saline lock was inserted per protocol IV SITE APPEARANCE: Clean,Dry and Intact SIGNATURE: Charla Marsh RN PATIENT NAME: Fanny Martinez DATE: December 19, 2021 TIME: 1:23 PM [facility] 12-19-2021 History of Presen t illness Narrative Radiology Service Progress Note DATE OF SERVICE: December 19, 2021 TIME: 1:23 PM PATIENT WEIGHT: 138 LBS PATIENT IDENTITY VERIFICATION COMPLETED USING TWO (2) STANDARD IDENTIFIERS: Name and Date of confirmed by patient verbally. FALL SCREENING: Has the patient had 2 falls in the last year or 1 fall with injury or currently using an Ambulatory Assistive Device (Walker, Cane, Wheelchair, Crutches, etc.)? No PATIENT GENDER DATA: Female. status: : No status: NO. ALLERGIES: Reviewed and unchanged CONTRAST ALLERGY: No EXAM: CT -CONTRAST INDUCED NEPHROPATHY RISK FACTORS: Patient age > 60 years CREATININE: Creatinine Date Value Ref Range Status 12/12/2021 0.80 0.58 - 0.96 mg/dL Final 10/23/2017 0.86 0.58 - 0.96 mg/dL Final 11/06/2014 0.83 0.70 - 1.40 mg/dL Final Estimated Glomerular Filtration Rate Date Value Ref Range Status 12/12/2021 77 >=60 mL/min/1.73m Final Comment: Estimated Glomerular Filtration Rate (eGFR) is calculated using the 2020 CKD-EPI creatinine equation. This equation utilizes serum creatinine, sex, and age as parameters. The creatinine assay has traceable calibration to isotope dilution-mass spectrometry. Refer to KDIGO guidelines for clinical interpretation. In patients with unstable renal function, e.g. those with acute kidney injury, the eGFR may not accurately reflect actual GFR. eGFR- Date Value Ref Range Status 10/23/2017 >60 Final P.O.C.T. RESULTS: N/A December 19, 2021 TREATMENT: No Hydration needed. IV SITE: Ambulatory: A peripheral IV was started in the Right forearm with a Angio cath: 22 gauge. and A Saline lock was inserted per protocol IV SITE APPEARANCE: Clean,Dry and Intact SIGNATURE: Charla Marsh RN PATIENT NAME: Fanny Martinez DATE: December 19, 2021 TIME: 1:23 PM documented in this encounter [facility] documented in this encounter [facility] Summary Purpose Family History No Family History Records FoundNo Family History Records FoundNo Family History Records FoundNo Family History Records Found Advance Directives No Advanced Directives Records FoundNo Advanced Directives Records FoundNo Advanced Directives Records FoundNo Advanced Directives Records Found Additional Source Comments INFORMATION SOURCE (unrecogn ized section and content) DATE CREATED AUTHOR AUTHOR'S ORGANIZ ATION 09/24/2022 [facility] DATE CREATED AUTHOR AUTHOR'S ORGANIZ ATION 03/05/2023 [facility] DATE CREATED AUTHOR AUTHOR'S ORGANIZ ATION 04/17/2023 [facility] Source Comments (unrecognize d section and content) In the event this informatio n is protected by the Federal Confidentiality of Alcohol and Drug Abuse Patient Records regulations: The Federal rules restrict any use of the information to criminally investigate or prosecute any alcohol or drug abuse patient.[facility] the event this information is protected by the Federal Confidentiality of Alcohol and Drug Abuse Patient Records regulations: The Federal rules restrict any use of the information to criminally investigate or prosecute any alcohol or drug abuse patient.[facility] the event this information is protected by the Federal Confidentiality of Alcohol and Drug Abuse Patient Records regulations: The Federal rules restrict any use of the information to criminally investigate or prosecute any alcohol or drug abuse patient.[facility] the event this information is protected by the Federal Confidentiality of Alcohol and Drug Abuse Patient Records regulations: The Federal rules restrict any use of the information to criminally investigate or prosecute any alcohol or drug abuse patient.[facility] the event this information is protected by the Federal Confidentiality of Alcohol and Drug Abuse Patient Records regulations: The Federal rules restrict any use of the information to criminally investigate or prosecute any alcohol or drug abuse patient.[facility] Care Teams (unrecognized sec tion and content) Surveyor Helper Rod Relationship Specialty Start Date End Date Tony Grissom, ARLINE.CLAIM CLERK [address] [place] [address] PCP - General Family Medicine 06/11/15 Surveyor Helper Rod Relationship Specialty Start Date End Date Tony Grissom APRN.CLAIM CLERK [address] [place], [place] [id number] PCP - General Family Medicine 06/11/15 Surveyor Helper Rod Relationship Specialty Start Date End Date Tony Grissom, THERMIT WELDING MACHINE OPERATOR.CLAIM CLERK [address] [place], [place] [phone] PCP - General Family Medicine 06/11/15 Surveyor Helper Rod Relationship Specialty Start Date End Date Tony Grissom [address] [place], [place] [id number] PCP - General Nurse Practitioner 04/08/23 Surveyor Helper Rod Relationship Specialty Start Date End Date Tony Grissom [address] [place] [address] PCP - General Nurse Practitioner 04/08/23 Surveyor Helper Rod Relationship Specialty Start Date End Date Tony Grissom, THERMIT WELDING MACHINE OPERATOR.CLAIM CLERK [address] [place], [place] [phone] PCP - General Family Medicine 06/11/15 Reason for Visit (unrecogniz ed section and content) Continuous Active and Recently Administ ered Medications (unrecognized section and content) FOR RECORDS PERTAINING TO PATIENTS WHO ARE OR HAVE BEEN ENROLLED IN A CHEMICAL DEPENDENCY/SUBSTANCEABUSE PROGRAM, SOME INFORMATION MAY BE OMITTED. This clinical summary was aggregated from multiple sources. Caution should be exercised in using it in the provision of clinical care. This summary normalizes information from multiple sources, and as a consequence, information in this document may materially change the coding, format and clinical context of patient data. In addition, data may be omitted in some cases. CLINICAL DECISIONS SHOULD BE BASED ON THE PRIMARY CLINICAL RECORDS. [facility] [employer] provides no warranty or guarantee of the accuracy or completeness of information in this document.
[2023-07-20 22:06] LABS: Absolute Lymphocyte Count 1.76 X10^3/uL (0.83-4.51); Absolute Neutrophil Count 7.5 X10^3/uL (2.0-7.7); Basophil# 0.05 X10^3/uL; Basophil% 0.5 % (0-1); Eosinophil# 0.23 X10^3/uL; Eosinophils% 2.3 % (0-5); Hematocrit 44.6 % (37-47); Hemoglobin 15.6 g/dL (12.0-15.0); Lymphocyte # 1.76 X10^3/ul (0.83-4.51); Lymphocyte % 17.2 % (19-41); Mean Corpuscular Volume 88.7 fL (81-99); Mean Platelet Vol. 9.2 fl (6.2-12.0); Monocyte# 0.65 X10^3/uL; Monocyte% 6.4 % (0-10); NRBC Flagged by Analyzer 0 % (0-5); Neutrophil # 7.48 X10^3/uL (2.7-7.7); Neutrophil % 73.2 % (47-70); Platelet Count 340 K/mm3 (150-450); RBC Distribution Width SD 42.4 fl (35.1-43.9); Red Blood Count 5.03 M/mm3 (4.2-5.4); White Blood Count 10.2 K/mm3 (4.4-11.0)
[2023-07-20 22:27] LABS: AST(SGOT) 32 U/L (15-37); Alanine Aminotransfer ALT/SGPT 31 U/L (13-56); Albumin, Serum 3.8 g/dL (3.2-5.0); Alkaline Phosphatase 59 U/L (45-117); Anion Gap 9 (5-15); BUN 16 mg/dL (7-18); BUN/Creat Ratio 19.9 RATIO (10-20); Calcium,Total 9.8 mg/dL (8.5-10.1); Chloride 96 mmol/L (98-107); Cholesterol 231 mg/dL (200); Creatinine, Serum 0.81 mg/dL (0.55-1.02); EST Glomerular Filtration Rate 73 mL/min (>60); Est Glom Filt Rate - Afr Amer 89 mL/min (>60); Globulin 3.8 g/dL (2.2-4.2); Glucose 107 mg/dL (74-106); High Density Lipoprotein 48 mg/dL; Potassium 4.1 mmol/L (3.5-5.1); Protein, Total 7.6 g/dL (6.4-8.2); Sodium Level 133 mmol/L (136-145); Triglycerides 264 mg/dL; Very Low Density Lipoprotein 53 mg/dL (5-40)
== END | disposition home or self-care (01) ==
PROVIDERS: PCP Nurse Practitioner; Visit Provider Nurse Practitioner
DX: I10 Essential (primary) hypertension (principal); E87.1 Hypo-osmolality and hyponatremia; E03.9 Hypothyroidism, unspecified
CPT/HCPCS: 80053; 80061; 84443; 85025

== ENCOUNTER → 2024-07-18 | Outpatient (CLI) | payer MEDICARE, OTHER, SELFPAY ==
[2024-07-19 00:12] LABS: ALB/GLOB Ratio 1.1 RATIO (0.9-2.4); AST(SGOT) 31 U/L (15-37); Alanine Aminotransfer ALT/SGPT 30 U/L (13-56); Albumin, Serum 3.8 g/dL (3.2-5.0); Alkaline Phosphatase 52 U/L (45-117); Anion Gap 8 (5-15); BUN 20 mg/dL (7-18); BUN/Creat Ratio 26.3 RATIO (10-20); Calcium,Total 9.9 mg/dL (8.5-10.1); Chloride 93 mmol/L (98-107); Cholesterol 227 mg/dL (200); Creatinine, Serum 0.76 mg/dL (0.55-1.02); EST Glomerular Filtration Rate 78 mL/min (>60); Est Glom Filt Rate - Afr Amer 95 mL/min (>60); Globulin 3.6 g/dL (2.2-4.2); Glucose 107 mg/dL (74-106); High Density Lipoprotein 60 mg/dL; Potassium 3.7 mmol/L (3.5-5.1); Protein, Total 7.4 g/dL (6.4-8.2); Sodium Level 129 mmol/L (136-145); Triglycerides 160 mg/dL; Very Low Density Lipoprotein 32 mg/dL (5-40)
[2024-07-19 00:20] LABS: Absolute Lymphocyte Count 1.86 X10^3/uL (0.83-4.51); Basophil# 0.06 X10^3/uL; Basophil% 0.5 % (0-1); Eosinophil# 0.19 X10^3/uL; Eosinophils% 1.7 % (0-5); Hematocrit 44.7 % (37-47); Hemoglobin 15.6 g/dL (12.0-15.0); Lymphocyte # 1.86 X10^3/ul (0.83-4.51); Lymphocyte % 16.9 % (19-41); Mean Corp Hgb Conc 34.9 g/dL (32-36); Mean Corpuscular Hgb 30.4 pg (27.0-32.0); Mean Corpuscular Volume 87.1 fL (81-99); Monocyte% 8.2 % (0-10); NRBC Flagged by Analyzer 0 % (0-5); Neutrophil # 7.95 X10^3/uL (2.7-7.7); Neutrophil % 72.2 % (47-70); Platelet Count 344 K/mm3 (150-450); RBC Distribution Width CV 13.2 % (11.6-14.6); RBC Distribution Width SD 41.9 fl (35.1-43.9); Red Blood Count 5.13 M/mm3 (4.2-5.4)
== END | disposition home or self-care (01) ==
PROVIDERS: PCP Nurse Practitioner; Referring Provider Nurse Practitioner; Visit Provider Nurse Practitioner
DX: E03.9 Hypothyroidism, unspecified (principal); A04.72 Enterocolitis due to Clostridium difficile, not specified as recurrent; I10 Essential (primary) hypertension; M81.0 Age-related osteoporosis without current pathological fracture
CPT/HCPCS: 80053; 80061; 84443; 85025

== ENCOUNTER → 2024-08-19 | Outpatient (CLI) | payer MEDICARE, OTHER, SELFPAY ==
[2024-08-20 02:40] LABS: ALB/GLOB Ratio 1.1 RATIO (0.9-2.4); AST(SGOT) 24 U/L (15-37); Alanine Aminotransfer ALT/SGPT 32 U/L (13-56); Alkaline Phosphatase 54 U/L (45-117); Anion Gap 8 (5-15); BUN 19 mg/dL (7-18); BUN/Creat Ratio 22.3 RATIO (10-20); Chloride 95 mmol/L (98-107); Creatinine, Serum 0.85 mg/dL (0.55-1.02); EST Glomerular Filtration Rate 69 mL/min (>60); Est Glom Filt Rate - Afr Amer 83 mL/min (>60); Globulin 3.8 g/dL (2.2-4.2); Glucose 83 mg/dL (74-106); Potassium 3.5 mmol/L (3.5-5.1); Protein, Total 7.8 g/dL (6.4-8.2); Sodium Level 134 mmol/L (136-145)
== END | disposition home or self-care (01) ==
PROVIDERS: PCP Nurse Practitioner; Referring Provider Nurse Practitioner; Visit Provider Nurse Practitioner
DX: E87.1 Hypo-osmolality and hyponatremia (principal)
CPT/HCPCS: 80053